=== PATIENT | male | born 1980 | race Caucasian/White ===

== ENCOUNTER 2023-03-28 00:11 | Day surgery (SDC) | payer OTHER, SELFPAY ==
[2023-03-15 11:10] VITALS: BMI 33.8
--- NOTE | 2023-03-26 09:27 | SUR.PREOP ---
Patient called regarding upcoming procedure. Message left on patient's voicemail regarding preop instructions, appointment times, and procedure prep.
--- NOTE | 2023-03-27 15:14 | PM.HPGS ---
History of Present Illness History of Present Illness Consent: Risks, benefits, and alternatives have been discussed and questions answered. Patient agrees to proceed with procedure. Chief complaint: neoplasm screening Narrative: Musa Butt is a 42 year old male referred for colon cancer screening. Review of Systems Review of Systems: All systems reviewed & are unremarkable except as noted in HPI and below PMFSH Social History Social History Smoking status: Current every day smoker Tobacco type: e-cigarettes/vaping Additional smoking assessment comments: Marijuana Alcohol intake: former Alcohol use details: Alcohol Abuse 25 years, Sober 2021 Substance use: current Substance use type: marijuana Other substance usage details: Daily medical marijuana use Spiritual care concerns: No Meds Home Medications and Allergies Home Medications Medication Instructions Recorded Confirmed Type atomoxetine 25 mg capsule 80 mg PO DAILY 03/15/23 03/28/23 History atorvastatin 10 mg tablet 10 mg PO DAILY 03/15/23 03/28/23 History duloxetine 30 mg capsule,delayed 30 mg PO TID 03/15/23 03/28/23 History release hydroxyzine pamoate 25 mg capsule 25 mg PO QID 03/15/23 03/28/23 History lisinopril 20 1 tablet PO DAILY 03/15/23 03/28/23 History mg-hydrochlorothiazide 25 mg tablet pantoprazole 40 mg tablet,delayed 40 mg PO QAM 03/15/23 03/28/23 History release quetiapine 100 mg tablet 200 mg PO HS 03/15/23 03/28/23 History Allergies Allergy/AdvReac Type Severity Reaction Status Date / Time Sulfa (Sulfonamide Allergy Unknown Hives Verified 03/28/23 11:51 Antibiotics) Exam Resp: Auscultation: clear to auscultation bilaterally Cardio: Rate: regular rate Rhythm: regular rhythm GI: GI Palp: Yes Soft to palpation and No Tenderness to palpation present (GI) Assessment and Plan Assessment and plan (1) Colon cancer screening: Code(s): Z12.11 - Encounter for screening for malignant neoplasm of colon Status: Acute Assessment and Plan: Colonoscopy with possible biopsy or polypectomy or cautery or injection of substances.
[2023-03-28 11:53] VITALS: BP 138/93; PULSE 95; RESP 16; TEMP 36.2; O2SAT 100
[2023-03-28] MEDS: LACTATED RINGERS 1,000 ML 150 ML IV CONT (12:13)
--- NOTE | 2023-03-28 12:24 | WPDANESEPPF ---
Anes - Initial Pre Proc Eval Procedure: Operation Date: 03/28/23 13:00 Proposed Procedures p Screening Colonoscopy - Chris Ewing MD Date/Time: 03/28/23 12:24 Surgeon: Chris Ewing MD Pre Op Diagnosis: neoplasm screening Patient Data Age: 42 Gender: M Height: 1.8 m Weight: 113.2 kg Last Vital Signs Temp 97.1 F L 03/28/23 11:53 Pulse 95 03/28/23 11:53 Resp 16 03/28/23 11:53 BP 138/93 H 03/28/23 11:53 Pulse Ox 100 03/28/23 11:53 O2 Del Method Room Air 03/28/23 11:53 Allergies Allergy/AdvReac Type Severity Reaction Status Date / Time Sulfa (Sulfonamide Allergy Unknown Hives Verified 03/28/23 11:51 Antibiotics) Home Medications Medication Instructions Recorded Confirmed Type atomoxetine 25 mg capsule 80 mg PO DAILY 03/15/23 03/28/23 History atorvastatin 10 mg tablet 10 mg PO DAILY 03/15/23 03/28/23 History duloxetine 30 mg capsule,delayed 30 mg PO TID 03/15/23 03/28/23 History release hydroxyzine pamoate 25 mg capsule 25 mg PO QID 03/15/23 03/28/23 History lisinopril 20 1 tablet PO DAILY 03/15/23 03/28/23 History mg-hydrochlorothiazide 25 mg tablet pantoprazole 40 mg tablet,delayed 40 mg PO QAM 03/15/23 03/28/23 History release quetiapine 100 mg tablet 200 mg PO HS 03/15/23 03/28/23 History Patient hx anesthesia problems: none Family hx anesthesia problems: none Results Review: All pre-operative results and documents have been reviewed as part of the pre-operative evaluation. [facility] Social History Social History Smoking status: Current every day smoker Tobacco type: e-cigarettes/vaping Additional smoking assessment comments: Marijuana Alcohol intake: former Alcohol use details: Alcohol Abuse 25 years, Sober 2021 Substance use: current Substance use type: marijuana Other substance usage details: Daily medical marijuana use Spiritual care concerns: No Anes - Eval Final PreProcedure Day of Procedure 03/28/23 12:24 Patient weight: obese Heart: regular rate and rhythm Lungs: clear to auscultation Airway: Mallampati scale class II Neurological: alert and oriented Last oral intake: >/= 8 hours ASA classification: III Emergent: no Anesthetic plan: proceed Anesthesia type and monitoring: general GIVS and standard monitoring Results Review: All pre-operative results and documents have been reviewed as part of the pre-operative evaluation. Informed Consent: The patient's anesthetic plan and its attendant risks and benefits were discussed with the patient/family/POA. Questions were solicited and answers provided to the satisfaction of the patient/family/POA.
[2023-03-28 12:52] VITALS: BP 120/82; PULSE 83; RESP 18; O2SAT 95
[2023-03-28 13:02] VITALS: BP 117/84; PULSE 74; RESP 18; O2SAT 100
[2023-03-28 13:12] VITALS: BP 120/90; PULSE 77; RESP 18; O2SAT 100
== END 2023-03-28 13:27 | disposition home or self-care (01) ==
PROVIDERS: PCP Internal Medicine; Visit Provider Internal Medicine Gastroenterology
PROC: 0DJD8ZZ Inspection of Lower Intestinal Tract, Via Natural or Artificial Opening Endoscopic (ICD-10-PCS; CPT 45378; principal; 2023-03-28 13:00)
DX: Z12.11 Encounter for screening for malignant neoplasm of colon (principal); K57.30 Diverticulosis of large intestine without perforation or abscess without bleeding; K64.8 Other hemorrhoids; F17.290 Nicotine dependence, other tobacco product, uncomplicated; F12.90 Cannabis use, unspecified, uncomplicated; E66.9 Obesity, unspecified; Z68.34 Body mass index [BMI] 34.0-34.9, adult
CPT/HCPCS: 45378; J2704; J7120

== ENCOUNTER 2023-05-16 10:58 | Outpatient (CLI) | payer OTHER, SELFPAY ==
--- NOTE | ~2023-05-16 | MR_ITS ---
MRI of the right knee Clinical history: Medial meniscus tear Technique: Coronal proton density and proton density-weighted images, sagittal proton-density and T2 fat-sat images, and axial proton-density fat-saturated images were acquired. Findings: Anterior and posterior cruciate ligaments are intact. Medial collateral ligament and the la teral collateral ligament complex are intact. Popliteus tendon is intact. There is complex flap tearing of the posterior horn of the medial meniscus. No lateral meniscal tear identified. There is focal chondromalacia towards the medial joint line. Articular cartilage in the lateral and p atellofemoral compartments is well preserved. Extensor mechanism is intact. There is no significant joint effusion or Lainez's cyst. There is mild e dematous change of the popliteus muscle belly. Impression: Complex flap tear of the posterior horn of the medial meniscus. Mild edematous change of the popliteus muscle belly. Correlate for low-grade muscle strain. Reviewed, dictated and finalized at [facility]. PROGRAMMER Impression: Complex flap tear of the posterior horn of the medial meniscus. Mild edematous change of the popliteus muscle belly. Correlate for low-grade mu scle strain.
== END 2023-05-16 10:59 ==
LOC: MICIMG 10:59
PROVIDERS: PCP Internal Medicine; Visit Provider Orthopaedic Surgery
DX: S83.231A Complex tear of medial meniscus, current injury, right knee, initial encounter (principal); M62.89 Other specified disorders of muscle; X58.XXXA Exposure to other specified factors, initial encounter
CPT/HCPCS: 73721

== ENCOUNTER 2023-07-06 09:29 | Outpatient (CLI) | payer OTHER, SELFPAY ==
--- NOTE | 2023-07-06 09:51 | ECG_ITS ---
Measurements Intervals [place] Rate: 92 P: 41 MT: 172 QRS: -16 QRSD: 94 T: 56 QT: 328 QTc: 407 Interpretive Statements SINUS RHYTHM BASELINE ARTIFACT- I, III, AVR, V2 NORMAL ECG NO PREVIOUS ECG AVAILABLE FOR COMPARISON Electronically Signed On 07-06-2023 10:26:41 CDT by Soham Lemus D.O.
[2023-07-06 10:32] LABS: Anion Gap 3 mmol/L (8-16); Blood Urea Nitrogen 17 mg/dL (9-20); Calcium 9.4 mg/dL (8.4-10.2); Carbon Dioxide 32 mmol/L (22-30); Chloride 105 mmol/L (98-107); Estimated Glomerular Filt Rate > 60; Glucose 101 mg/dL (65-110); Potassium 4.4 mmol/L (3.4-5.0); Sodium 140 mmol/L (137-145)
== END 2023-07-06 09:30 | disposition home or self-care (01) ==
LOC: ANHSURGERY 09:34
PROVIDERS: Anesthesiology; PCP Internal Medicine; Visit Provider Orthopaedic Surgery
DX: Z01.818 Encounter for other preprocedural examination (principal); I10 Essential (primary) hypertension; Z79.899 Other long term (current) drug therapy
CPT/HCPCS: 36415; 80048; 93005

== ENCOUNTER 2023-07-16 00:11 | Day surgery (SDC) | payer OTHER, SELFPAY ==
[2023-07-05 14:20] VITALS: BMI 34.5
--- NOTE | 2023-07-05 14:26 | PC.NURSE ---
Report to the Outpatient Waiting Room, entrance under the green pavilion located off [facility], at time _0600_ on date _[id number]_. Planned Procedure Time: _0730_. Time changes happen often and if your time is changed the preop area will call you the afternoon before. - You and your visitor will be asked to self-screen and do not enter if you have any COVID symptoms. - A mask is optional within the hospital at this time. Patients may have clear liquids (water, carbonated beverages, clear teas, apple juice) until 3 hours prior to surgery with a maximum of 20 ounces. - No food from midnight until time of surgery Take the following medications with a SIP of water the morning of surgery: ____Atomoxetine, Duloxetine and Hydroxyzine DO NOT STOP ANY OF YOUR OTHER PRESCRIPTION MEDICATIONS PRIOR TO SURGERY ?EXCEPT THE FOLLOWING Medications to discontinue per physician None Date to take last dose Please no make-up, nail cook islander, hairspray, perfume, deodorant, or body powder the day of surgery. No jewelry (including any body piercings) or valuables the day of surgery, leave them at home. Please take a shower or bath the night before, or the morning of, surgery with an antibacterial soap. Wear comfortable, loose fitting clothing. - Jewelry must be removed prior to entering the operating room. Rings and piercings that are not removed may be cut off. - The hospital will not accept responsibility for valuables. - Please leave all valuables, including medications, at home the day of surgery. If you are going home after surgery, a licensed dinkey driver must drive you home. - NO public transportation without another adult if you receive anesthesia. - We recommend that an adult stay with you for 24 hours following discharge. - We also recommend that you do not drive, make important decision, drink alcoholic beverages, or take any drugs that were not prescribed by your health care provider for at least 24 hours after your discharge time. Follow any additional instructions given to you from your surgeon. If you or anyone in your household have experienced Covid symptoms in the past week, please notify your surgeon or the nurse liaison at the phone number below for possible testing. Telephone instructions given to __Ross___and asked if any additional questions and then verbalized understanding. Patient advised to call surgeon office or pre surgery nurse liaison [phone] if any additional questions.
--- NOTE | 2023-07-12 08:14 | PM.IMHP ---
H&P: HPI History of Present Illness Date/Time: 07/12/23 08:14 Chief Complaint: Patient has locking and catching of his right knee medial meniscus. He has failed conservative treatment would like to consider arthroscopic intervention. Review of Systems Musculoskeletal: Musculoskeletal: Reports arthralgias, Reports joint swelling and Reports stiffness [facility] Past Medical History Medical History Hypertension Surgical History Surgical History History of arthroscopy of left knee Family History Family History Mother Hypertension Father Hypertension Social History Social History Smoking status: Never smoker Alcohol intake: former Alcohol use details: Alcohol Abuse 25 years, Sober 2021 Substance use: current Substance use type: marijuana Other substance usage details: Daily Do You Feel Safe in your Home?: Yes Lack of Transportation: No Lack of Food: Never True Current Housing: I Have Housing Concerned About Future Housing: No Difficulty Paying Gas/Electric Bills: No Difficulty Paying for Meds: No Currently Unemployed: No Education: Bachelor's Degree Difficulty w/ Childcare or Family Care: No Living arrangements: with family Occupation/Education: occupation Additional occupation/education comments: [employer] care concerns: No Meds Home Medications and Allergies Home Medications Medication Instructions Recorded Confirmed Type atorvastatin 10 mg tablet 10 mg PO DAILY 03/15/23 07/05/23 History duloxetine 30 mg capsule,delayed 30 mg PO TID 03/15/23 07/05/23 History release hydroxyzine pamoate 25 mg capsule 25 mg PO QID 03/15/23 07/05/23 History lisinopril 20 1 tablet PO DAILY 03/15/23 07/05/23 History mg-hydrochlorothiazide 25 mg tablet pantoprazole 40 mg tablet,delayed 40 mg PO QAM 03/15/23 07/05/23 History release quetiapine 100 mg tablet 200 mg PO HS 03/15/23 07/05/23 History atomoxetine 80 mg capsule 80 mg PO DAILY 07/05/23 07/05/23 History Allergies Allergy/AdvReac Type Severity Reaction Status Date / Time Sulfa (Sulfonamide Allergy Unknown Hives Verified 07/05/23 14:18 Antibiotics) Exam Narrative: On exam he is tender to palpation medially has catching locking and pain with any manipulation. He has a positive Carlos's and pain along the joint line. Neurologically appears to be grossly intact. Eyes: General: appearance normal, both eyes and all related structures Neck: Neck: supple Resp: Effort & Inspection: normal respiratory effort Cardio: Rate: regular rate Rhythm: regular rhythm Radiology Reports: Comments: Patient: Musa Butt : 1980 MR#: [id number] Age: 42 Loc: [facility]? ? ADM Date: 05/16/23Attending Dr: Lai Graham M.D. Ordering Physician: Lai Graham MD Date of Service: 05/16/23 Procedure(s): MR knee RT wo con Accession Number(s): [id number] cc: Jim, Jesus Chandler MD; Lai Graham MD~ MRI of the right knee Clinical history: Medial meniscus tear Technique: Coronal proton density and proton density-weighted images, sagittal proton-density and T2 fat-sat images, and axial proton-density fat-saturated images were acquired. Findings: Anterior and posterior cruciate ligaments are intact. Medial collateral ligament and the lateral collateral ligament complex are intact. Popliteus tendon is intact. There is complex flap tearing of the posterior horn of the medial meniscus. No lateral meniscal tear identified. There is focal chondromalacia towards the medial joint line. Articular cartilage in the lateral and patellofemoral compartments is well preserved. Extensor mechanism is intact. There is no significant shiv
[2023-07-16] VITALS (8 sets, daily range): BP systolic 105–130; BP diastolic 61–92; PULSE 69–108; RESP 16–22; TEMP 36.4; O2SAT 95–100
--- NOTE | 2023-07-16 06:53 | WPDHPUPDATE1 ---
History and Physical Update Update Date/Time: 07/16/23 06:53 History and Physical has been reviewed, including an updated exam of the patient. There are NO changes in the patient's condition. Risks, benefits, and alternatives have been discussed and questions answered. Patient agrees to proceed with procedure.
[2023-07-16] MEDS: ACETAMINOPHEN 500 MG TABLET 1000 MG PO (07:45)
[2023-07-16] MEDS: KETOROLAC 15 MG/ML VIAL (*BKC) IV PUSH (08:09)
--- NOTE | 2023-07-16 08:19 | WPDANESEPPF ---
Anes - Initial Pre Proc Eval Procedure: Operation Date: 07/16/23 09:30 Proposed Procedures p Right Knee Arthroscopy, Partial Meniscectomy - Lai Graham MD Date/Time: 07/16/23 08:19 Surgeon: Lai Graham MD Pre Op Diagnosis: right medial meniscal tear Patient Data Age: 42 Gender: M Height: 1.8 m Weight: 114.6 kg Last Vital Signs Temp 36.4 C 07/16/23 07:52 Pulse 108 H 07/16/23 07:52 Resp 16 07/16/23 07:52 BP 113/87 07/16/23 07:52 Pulse Ox 97 07/16/23 07:52 O2 Del Method Room Air 07/16/23 07:52 Allergies Allergy/AdvReac Type Severity Reaction Status Date / Time Sulfa (Sulfonamide Allergy Unknown Hives Verified 07/16/23 07:41 Antibiotics) Home Medications Medication Instructions Recorded Confirmed Type atorvastatin 10 mg tablet 10 mg PO DAILY 03/15/23 07/05/23 History duloxetine 30 mg capsule,delayed 30 mg PO TID 03/15/23 07/05/23 History release hydroxyzine pamoate 25 mg capsule 25 mg PO QID 03/15/23 07/05/23 History lisinopril 20 1 tablet PO DAILY 03/15/23 07/05/23 History mg-hydrochlorothiazide 25 mg tablet pantoprazole 40 mg tablet,delayed 40 mg PO QAM 03/15/23 07/05/23 History release quetiapine 100 mg tablet 200 mg PO HS 03/15/23 07/05/23 History atomoxetine 80 mg capsule 80 mg PO DAILY 07/05/23 07/05/23 History Patient hx anesthesia problems: none Family hx anesthesia problems: none Results Review: All pre-operative results and documents have been reviewed as part of the pre-operative evaluation. REPLACED BY [facility] Past Medical History Medical History Hypertension Surgical History Surgical History History of arthroscopy of left knee Family History Family History Mother Hypertension Father Hypertension Social History Social History (Reviewed 05/23/23 @ 09:05 by Wandy Martin [facility] Smoking status: Never smoker Alcohol intake: former Alcohol use details: Alcohol Abuse 25 years, Sober 2021 Substance use: current Substance use type: marijuana Other substance usage details: Daily Do You Feel Safe in your Home?: Yes Lack of Transportation: No Lack of Food: Never True Current Housing: I Have Housing Concerned About Future Housing: No Difficulty Paying Gas/Electric Bills: No Difficulty Paying for Meds: No Currently Unemployed: No Education: Bachelor's Degree Difficulty w/ Childcare or Family Care: No Living arrangements: with family Occupation/Education: occupation Additional occupation/education comments: [employer] concerns: No Anes - Eval Final PreProcedure Day of Procedure 07/16/23 08:19 Patient weight: obese Heart: regular rate and rhythm Lungs: clear to auscultation Airway: Mallampati scale class II Neurological: alert and oriented Last oral intake: >/= 8 hours ASA classification: III Emergent: no Anesthetic plan: proceed Anesthesia type and monitoring: general LMA and standard monitoring Results Review: All pre-operative results and documents have been reviewed as part of the pre-operative evaluation. Informed Consent: The patient's anesthetic plan and its attendant risks and benefits were discussed with the patient/family/POA. Questions were solicited and answers provided to the satisfaction of the patient/family/POA.
[2023-07-16] MEDS: LACTATED RINGERS 1,000 ML 30 ML IV CONT (08:27)
[2023-07-16] MEDS: ceFAZolin 2 GM/D5W 50 ML 2 GM/50 ML BAG IVPB (09:56)
[2023-07-16] MEDS: LIDO 1%/EPINEPHRINE 1:100,000 50 ML VIAL 10 ML INFILTRATE (10:24)
--- NOTE | 2023-07-16 10:30 | W.PM.PROC2 ---
Procedure Note - Detailed Date of Procedure 07/16/23 Pre-op Diagnosis Right medial meniscal tear Post-op Diagnosis Same Procedure Performed RIGHT knee arthroscopy with partial meniscetomy Surgeon Lai Graham MD Anesthesia General Description of Procedure Patient brought to operating room # 7. An anesthetic was administered. The knee was steriley prepped and draped in the usual manner. Standard portals were used. Superior medial portal was used for the outflow cannula, inferior lateral portal was used for the scope, inferior medial portal was used for the instruments. Arthroscopy was performed, the patellar femoral joint degenerative changes. The medial compartment showed a complex tear. The lateral compartment showed fraying. The ACL was intact. Using baskets and josiah the meniscal tear was trimmed back to a stable base so the nothing further could be pulled into the joint. Any loose or delaminated fragments were gently trimmed to a stable base. At this point the instruments were withdrawn, sutures placed and the patient left the operating room in satisfactory condition. Estimated Blood Loss 20 Drains No Packing No Pathology None sent Complications No immediate complications Condition Stable Disposition PACU [facility] Billing Surgery - Charge Forward: Surgery Billing (Medial Meniscal Tear [id number])
== END 2023-07-16 12:45 | disposition home or self-care (01) ==
PROVIDERS: PCP Internal Medicine; Visit Provider Orthopaedic Surgery
PROC: (CPT 29870; principal; 2023-07-16 09:30)
DX: S83.241A Other tear of medial meniscus, current injury, right knee, initial encounter (principal); I10 Essential (primary) hypertension; F12.90 Cannabis use, unspecified, uncomplicated; E66.9 Obesity, unspecified; Z68.35 Body mass index [BMI] 35.0-35.9, adult; Z98.890 Other specified postprocedural states; X58.XXXA Exposure to other specified factors, initial encounter
CPT/HCPCS: 29881; A9270; J0690; J1100; J1885; J2250; J2405; J2704; J3010; J7120

== ENCOUNTER 2024-10-10 08:44 | Emergency (ER) | payer OTHER, SELFPAY ==
[2024-10-10 08:46] VITALS: BP 123/89; PULSE 137; RESP 15; TEMP 36.4; O2SAT 98
--- NOTE | 2024-10-10 08:53 | ECG_ITS ---
Test Date: 2024-10-10 08:50:58 Measurements Intervals [place] Rate: 120 P: 60 NH: 158 QRS: 5 QRSD: 94 T: 56 QT: 291 QTc: 413 Interpretive Statements SINUS TACHYCARDIA ABNORMAL ECG No previous ECG available for comparison Electronically Signed On 10-10-2024 08:55:15 CDT by Soham Lemus D.O.
[2024-10-10 09:14] LABS: Basophils Absolute Auto 0.1 K/mm3 (0.0-0.1); Eosinophils Percent Auto 0.2 % (0-4.4); Hematocrit 49.9 % (42.0-52.0); Hemoglobin 17.8 g/dL (14.0-18.0); Immature Granulocyte Absolute 0.02 K/mm3 (0.00-0.031); Immature Granulocyte Percent A 0.2 % (0-0.5); Lymphocytes Absolute Auto 2.88 K/mm3 (0.9-3.2); Lymphocytes Percent Auto 30.1 % (18.3-44.2); Mean Corpuscular HGB Conc 35.7 g/dl (32-36); Mean Platelet Volume 9.5 fl (7.4-10.4); Monocytes Absolute Auto 0.5 K/mm3 (0.1-0.6); Monocytes Percent Auto 5.3 % (2.6-8.5); Neutrophils Absolute Auto 6.1 K/mm3 (1.3-6.7); Neutrophils Percent Auto 63.2 % (45.5-73.1); Platelet Count Result 349 k/mm3 (150-375); Red Blood Count 5.94 M/mm3 (4.6-6.20); Red Cell Distribution Width 13.2 % (11.5-14.5); White Blood Count 9.6 K/mm3 (4.5-10.0)
--- NOTE | 2024-10-10 09:16 | ED.ALCOHOL ---
HPI - Alcohol General Chief Complaint: Alcohol Stated Complaint: alcoholism last drink last night Time Seen by Provider: 10/10/24 09:01 History of Present Illness HPI narrative: Patient is a 44-year-old male who presents to the ER with concerns of alcohol withdrawal. He reports he went through alcohol rehab approximately 3 years ago. Patient reports he has had intermittent setbacks throughout the past 3 years but has not been drinking regularly. He reports ?I just feel so bad that I am back here and I am so scared to go through this again. Patient is unsure when the last time was that he drink but he reports it was within the last 24 hours. He reports he drinks ?two airplane bottles. Patient reports his abdomen hurts and he has shaking in his hands. He endorses medical history of high blood pressure. Patient denies any chest pain, shortness of breath, back pain, headache or neck pain. Related Data Home Medications ?Medication ?Instructions ?Recorded ?Confirmed ?Last Taken ?Type atorvastatin 10 mg tablet 10 mg PO DAILY 03/15/23 07/31/23 03/27/23 History duloxetine 30 mg capsule,delayed 30 mg PO TID 03/15/23 07/31/23 03/27/23 History release hydroxyzine pamoate 25 mg capsule 25 mg PO QID 03/15/23 07/31/23 03/27/23 History lisinopril 20 1 tablet PO DAILY 03/15/23 07/31/23 03/27/23 History mg-hydrochlorothiazide 25 mg tablet pantoprazole 40 mg tablet,delayed 40 mg PO QAM 03/15/23 07/31/23 03/27/23 History release quetiapine 100 mg tablet 200 mg PO HS 03/15/23 07/31/23 03/27/23 History atomoxetine 80 mg capsule 80 mg PO DAILY 07/05/23 07/31/23 Unknown History semaglutide (weight loss) 0.25 0.25 mg subcut WEEKLY 07/31/23 07/31/23 Unknown History mg/0.5 mL subcutaneous pen injector (Wegovy) Allergies Allergy/AdvReac Type Severity Reaction Status Date / Time Sulfa (Sulfonamide Allergy Unknown Hives Verified 10/10/24 08:52 Antibiotics) Review of Systems Review of Systems: All systems reviewed & are unremarkable except as noted in HPI and below PMFSH Past Medical History Medical History Anxiety Depression Hyperlipemia Hypertension Surgical History Surgical History History of arthroscopy of left knee Family History Family History Mother Hypertension Father Hypertension Social History Social History Smoking status: Never smoker Alcohol intake: former Alcohol use details: Alcohol Abuse 25 years, Sober 2021 Substance use: current Substance use type: marijuana Other substance usage details: Daily Do You Feel Safe in your Home?: Yes Lack of Transportation: No Lack of Food: Never True Current Housing: I Have Housing Concerned About Future Housing: No Difficulty Paying Gas/Electric Bills: No Difficulty Paying for Meds: No Currently Unemployed: No Education: Bachelor's Degree Difficulty w/ Childcare or Family Care: No Living arrangements: with family Occupation/Education: occupation Additional occupation/education comments: [employer] care concerns: No Exam Narrative: GENERAL: Well appearing, well-nourished, non-toxic, in no acute distress. HEAD: Normocephalic, atraumatic. NECK: Supple. No adenopathy, no masses. RESPIRATORY: Airway patent, respirations nonlabored. Clear to auscultation bilaterally, no rales, rhonchi, wheezing. CARDIOVASCULAR: Regular rate and rhythm without murmurs, rubs, or gallops. Peripheral pulses 2+ and equal bilaterally. ABDOMINAL: Soft, nontender, nondistended, no hepatosplenomegaly. Normoactive BS. MUSCULOSKELETAL: Moves all extremities. Strength/ROM intact without gross deformities. SKIN: Warm, dry, normal color. No rashes. NEURO: A&O X3. Speech clear. Cranial nerves II-XII intact. Mild tremor in bilateral hands PSYCHIATRIC: Tearful Course Vital Signs Vital signs: Vital Signs Temperature 36.4 C 10/10/24 08:46 Pulse Rate 137 H 10/10/24 08:46 Respiratory Rate 15 10/10/24 08:46 Blood Pressure 123/89 10/10/24 08:46 Pulse Oximetry 98 10/10/24 08:46 Oxygen Delivery Room Air 10/10/24 08:46 Temperature 36.4 C 10/10/24 08:46 Pulse Rate 137 H 10/10/24 08:46 Respiratory Rate 15 10/10/24 08:46 Blood Pressure 123/89 10/10/24 08:46 Pulse Oximetry 98 10/10/24 08:46 Oxygen Delivery Room Air 10/10/24 08:46 MDM - Alcohol MDM Narrative Medical decision making narrative: Patient is a 44-year-old male who presents to the ER with concerns of alcohol withdrawal. He reports he went through alcohol rehab approximately 3 years ago. Patient reports he has had intermittent setbacks throughout the past 3 years but has not been drinking regularly. He reports ?I just feel so bad that I am back here and I am so scared to go through this again. Patient is unsure when the last time was that he drink but he reports it was within the last 24 hours. He reports he drinks ?two airplane bottles. Patient reports his abdomen hurts and he has shaking in his hands. He endorses medical history of high blood pressure. Patient denies any chest pain, shortness of breath, back pain, headache or neck pain. Labs Ordered: CBC, CMP, PTT, INR, we B12, folic acid, phosphorus, COVID/flu/RSV, flu asleep level, ethanol level, magnesium, TSH, UDS, UA Imaging Ordered: None necessary Medications Ordered: Vitamin B12, folic acid, thiamine IV, potassium chloride p.o., 1 L normal saline IV bolus Results: Patient's CBC was unremarkable for any acute abnormalities. His CMP indicated a potassium of 3.3, his anion gap is 16, glucose of 136, AST of 63. Patient's vitamin B12 is 639, folate of 4.9, TSH of 3.420. His ethanol level was 318. Patient's respiratory panel was negative for any influenza, RSV, or COVID. Diagnosis: Alcohol intoxication Consults: [facility] (Mary Ellen Gottlieb) Patient Education/Shared MDM: Results of lab work shared with patient and his family. [facility] Display Coordinator Appellate Conferee, Mary Ellen Gottlieb, reports pt has been accepted at her facility for inpatient alcohol treatment. She requests pt receive a dose of Hydroxyzine PO prior to him being discharged. Pt is not experiencing withdrawal symptoms at this time, but is very anxious. Patient strongly advised to maintain hydration status upon discharge and follow-up with plan established by Mary Ellen Gottlieb. He will not be discharged home with any new prescriptions. Strict return precautions provided. Patient verbalized understanding and is in agreement with plan. Vital signs stable at time of discharge. All questions answered. Differential Diagnosis Differential diagnosis: Likely alcohol withdrawal delirium, hypomagnesemia, alcohol intoxication and alcohol withdrawal syndrome Lab Data Attestation: I reviewed the patient's lab results. 10/10/24 08:59 10/10/24 08:59 Labs: Lab Results 10/10/24 Range/Units 08:59 WBC 9.6 (4.5-10.0) K/mm3 RBC 5.94 (4.6-6.20) M/mm3 Hgb 17.8 (14.0-18.0) g/dL Hct 49.9 (42.0-52.0) % MCV 84.0 (80-100) fl MCH 30.0 (26-34) pg MCHC 35.7 (32-36) g/dl RDW 13.2 (11.5-14.5) % Plt Count 349 (150-375) k/mm3 MPV 9.5 (7.4-10.4) fl Immature Gran % (Auto) 0.2 (0-0.5) % Neut % (Auto) 63.2 (45.5-73.1) % Lymph % (Auto) 30.1 (18.3-44.2) % Burke % (Auto) 5.3 (2.6-8.5) % Eos % (Auto) 0.2 (0-4.4) % Baso % (Auto) 1.0 (0.2-1.2) % Lymph # (Auto) 2.88 (0.9-3.2) K/mm3 Burke # (Auto) 0.5 (0.1-0.6) K/mm3 Eos # (Auto) 0.0 (0-0.3) K/mm3 Baso # (Auto) 0.1 (0.0-0.1) K/mm3 Abs Immat Gran (auto) 0.02 (0.00-0.031) K/mm3 Absolute Neuts (auto) 6.1 (1.3-6.7) K/mm3 Absolute Nucleated RBC 0.000 (0.0-0.012) K/mm3 Nucleated RBC % 0.0 (0.0-0.2) % PT 13.3 (11.1-14.7) Seconds INR 1.0 APTT 26.2 (22.3-36.8) Seconds Sodium 139 (137-145) mmol/L Potassium 3.3 L (3.4-5.0) mmol/L Chloride 100 (98-107) mmol/L Carbon Dioxide 23 (22-30) mmol/L Anion Gap 16 H (4-12) mmol/L BUN 15 (9-20) mg/dL Creatinine 1.06 (0.7-1.3) mg/dL Estim Creat Clear Calc 98 ml/min Estimated GFR > 60 (59 - ) Glucose 136 H (65-110) mg/dL Calcium 8.6 (8.4-10.2) mg/dL Phosphorus 3.0 (2.5-4.5) mg/dL Magnesium 2.2 (1.6-2.3) mg/dL Total Bilirubin 1.0 (0.2-1.3) mg/dL AST 63 H (17-59) U/L ALT 46 (6-50) U/L Alkaline Phosphatase 72 (38-126) U/L Total Protein 8.2 (6.3-8.2) g/dL Albumin 4.5 (3.5-5.1) g/dL Vitamin B12 639.0 (239-931) pg/mL Folate 4.9 (2.76->20) ng/mL TSH (Reflex) 3.420 (0.465-4.68) uIU/mL Salicylates < 1.0 L (2-20) mg/dL Acetaminophen < 10 L (10-30) ug/mL Ethyl Alcohol 318 H* (<10) mg/dL Influenza A (RT-PCR) Negative (Negative) Influenza B (RT-PCR) Negative (Negative) RSV (RT-PCR) Negative (Negative) SARS-CoV-2 RNA (RT-PCR) Negative (Negative) Discharge Plan Discharge Clinical Impression: Alcohol intoxication, Acute hypokalemia, Dehydration, mild Patient Disposition: Inpatient Rehab Facility Condition: Guarded Prognosis Instructions: Abuse of Alcohol (ED) Additional Instructions: Please return to the ER with any worsening symptoms. Follow-up with your plan to go to rehabilitation as discussed with the Jeaneth Theodore coordinator. Please remember to drink plenty of water. Patient Language: [place] Citizen Prescriptions: No Action Wegovy 0.25 mg/0.5 mL pen injector 0.25 mg subcut WEEKLY Rx Instructions: administer weeks 1 through 4 of therapy atorvastatin 10 mg Tablet 10 mg PO DAILY quetiapine 100 mg tablet 200 mg PO HS pantoprazole 40 mg Tablet,Delayed Release (Dr/Ec) 40 mg PO QAM lisinopril-hydrochlorothiazide 20-25 mg tablet 1 tablet PO DAILY hydroxyzine pamoate 25 mg Capsule 25 mg PO QID Rx Instructions: Taking only tid duloxetine 30 mg capsule,delayed release(DR/EC) 30 mg PO TID atomoxetine 80 mg capsule 80 mg PO DAILY Follow-up/Referrals: Jim,MD Jesus [Primary Care Provider] - Time of Disposition: 12:50
[2024-10-10 09:32] LABS: Alanine Aminotransferase 46 U/L (6-50); Albumin Level 4.5 g/dL (3.5-5.1); Alkaline Phosphatase 72 U/L (38-126); Anion Gap 16 mmol/L (4-12); Aspartate Amino Transferase 63 U/L (17-59); Blood Urea Nitrogen 15 mg/dL (9-20); Calcium 8.6 mg/dL (8.4-10.2); Carbon Dioxide 23 mmol/L (22-30); Chloride 100 mmol/L (98-107); Estimated CRCL calculation 98 ml/min; Estimated Glomerular Filt Rate > 60; Glucose 136 mg/dL (65-110); Magnesium 2.2 mg/dL (1.6-2.3); Potassium 3.3 mmol/L (3.4-5.0); Sodium 139 mmol/L (137-145); Total Protein 8.2 g/dL (6.3-8.2)
[2024-10-10 09:33] LABS: Prothrombin Time 13.3 Seconds (11.1-14.7)
[2024-10-10 09:34] LABS: Partial Thromboplastin Time 26.2 Seconds (22.3-36.8)
[2024-10-10] MEDS: FOLIC ACID 1 MG TABLET PO (09:40)
[2024-10-10] MEDS: CYANOCOBALAMIN 1,000 MCG TABLET 1000 MCG PO (09:40)
[2024-10-10] MEDS: SODIUM CHLORIDE 0.9% IV 1,000 ML 999 ML IV CONT (09:41)
[2024-10-10] MEDS: THIAMINE HCL 200 MG/2 ML VIAL 100 MG IV PUSH (09:47)
[2024-10-10] MEDS: POTASSIUM CHLORIDE 20 MEQ PACKET (FOR LIQUID) 40 MEQ PO (09:48)
[2024-10-10 10:14] LABS: Acetaminophen < 10 ug/mL (10-30); Salicylate < 1.0 mg/dL (2-20)
[2024-10-10 10:25] LABS: Influenza A QL RT-PCR Negative (Negative); Influenza B QL RT-PCR Negative (Negative); RSV RNA, RT-PCR Negative (Negative); SARS-CoV-2 RNA PCR Negative (Negative)
[2024-10-10 10:41] LABS: Ethanol 318 mg/dL (<10)
[2024-10-10 11:37] LABS: Folic Acid 4.9 ng/mL (2.76->20)
[2024-10-10 12:47] VITALS: BP 142/92; PULSE 92; RESP 16; O2SAT 99
[2024-10-10 12:55] VITALS: BP 105/68; PULSE 108; RESP 20; O2SAT 97
[2024-10-10] MEDS: hydrOXYzine HCL 25 MG TABLET PO (12:56)
[2024-10-10 13:03] VITALS: BP 105/68; PULSE 108; RESP 20; O2SAT 97
== END 2024-10-10 13:05 ==
PROVIDERS: Emergency Medicine; Emergency Provider Registered Nurse; PCP Internal Medicine
DX: F10.129 Alcohol abuse with intoxication, unspecified (principal); Y90.8 Blood alcohol level of 240 mg/100 ml or more; E87.6 Hypokalemia; E86.0 Dehydration; F41.8 Other specified anxiety disorders; E78.5 Hyperlipidemia, unspecified; I10 Essential (primary) hypertension; Z11.59 Encounter for screening for other viral diseases
CPT/HCPCS: 36415; 80053; 80143; 80179; 82077; 82607; 82746; 83735; 84100; 84443; 85025; 85610; 85730; 87637; 93005; 96361; 96374; 99284; A9270; J3411; J7030

== ENCOUNTER 2025-01-14 00:39 | Day surgery (SDC) | payer OTHER, SELFPAY ==
[2025-01-05 11:07] VITALS: BMI 30.1
--- OUTSIDE RECORDS SUMMARY | 2025-01-14 00:42 | XMS_ITS | Data Portability ---
Author Organization [place] - [facility] [employer], Main Office Address [address] [place] [address] Care Team Providers Care Risk Consulting Treasury Director Name Role Phone SOCO MURPHY Primary Care Provider SOCO MURPHY Referring Provider Assessment Encounter Date Assessment Date Assessment LastModified by Organization Details LastModified Time 07/30/2024 07/30/2024 Addendum: 08/01/2024: Case sent 07/31/2024: Gluc 101 Not available 08/01/2024 14:12:09 11/19/2024 11/19/2024 Addendum: 08/01/2024: Case sent 07/31/2024: Gluc 101 Not available 11/19/2024 12:11:22 Plan of Treatment Reminders Order Date Submit Date Provider Last Modified By Organization Details Last Modified Time Details Appointments New Patient 40 2024 02:00P IZA Greenberg Not available Not available Not available Follow Up 15 2024 03:45P Amanda zavala MD Not available Not available Not available Lab vitamin D, 25-hydrox y, total, serum [email or web address] [place] [address] (Lab), [address] [place], [address], 11/26/2024 10:38:45 lipid panel, serum 2024 025 ESME [facility] (Lab), [address] [place], [address], 11/19/2024 20:06:19 CBC w/ auto diff 2024 025 [facility] (Lab), [address] [place], [address], 11/19/2024 19:53:14 CMP, serum or plasma 2024 025 [facility] (Lab), [address] [place], [address], 11/19/2024 20:06:24 TSH, serum or plasma 2024 025 [facility] (Lab), [address] [place], [address], 11/19/2024 20:39:45 vitamin B12 + folate, serum or blood [address] (Lab), [address] [place], [address], 11/26/2024 10:38:45 vitamin D, 25-hydrox y, total, serum [address] (Lab), [address] [place], [address], 08/07/2024 18:02:41 lipid panel, serum 2024 025 [facility] (Lab), [address] [place], [address], 07/31/2024 15:25:14 CBC w/ auto diff 2024 025 [facility] (Lab), [address] [place], [address], 07/31/2024 14:25:16 CMP, serum or plasma 2024 025 [facility] (Lab), [address] [place], [address], 07/31/2024 15:25:30 TSH, serum or plasma 2024 025 ESME [facility] (Lab), [address] [place], [address], 07/31/2024 15:58:15 vitamin B12 + folate, serum or blood 2024 025 [email or web address] [facility] (Lab), [address] [place], [address], 08/07/2024 18:02:41 vitamin D, 25-hydrox y, total, serum [address] (Lab), [address] [place], [address], 03/26/2024 14:31:48 lipid panel, serum [address] (Lab), [address] [place], [address], 03/26/2024 14:32:19 Referral psychiatr ist referral - Please call patient to schedule an appointme nt. Thank you. 2024 025 [email or web address] Inga Calvo Pmhnp, [address] [facility] [address], [place], [address], 11/26/2024 09:54:58 urologist referral - Please call patient to schedule. Note from provider: Pt has history of low testoster one. Needs consult for these issues. 2023 024 [email or web address] [facility] [address], [address], [place], [address], 08/11/2024 08:09:17 Procedures upper endoscopy procedure (EGD) (PROC) - Please call patient to schedule an appointme nt. Thank you. 2024 025 [email or web address] Chris Ewing MD, [address], [address], [place], [address], 11/05/2024 09:03:23 Surgeries None recorded. Imaging None recorded. Medication Orders Zepbound 5 mg/0.5 mL subcutane ous pen injector 2024 025 ESME [id number], [address], [place], [place], [id number], 11/19/2024 12:26:53 trazodone 50 mg tablet 2024 025 [email or web address] [facility] #[facility]751, [address], [place], [place], [id number], 11/20/2024 10:07:06 Zepbound 2.5 mg/0.5 mL subcutane ous pen injector 2024 025 [email or web address] [facility] #01517, [address], [place], [place], [id number], 11/19/2024 11:28:42 Wegovy 2.4 mg/0.75 mL subcutane ous pen injector 2023 024 [email or web address] [facility] #00822, [address], [place], [place], [id number], 07/30/2024 16:19:38 Patient TargetsNo targets recorded. Patient Instructions Encounter Date Encounter Id Patient Instructions Last Modified By Organization Details Last Modified Time 12/05/2023 [id number] Follow up in 4 months Prescription sent to pharmacy Referral: Dr. Tejeda-urology- decreased libido/low testosterone Recommend: Not available 12/05/2023 09:53:54 03/26/2024 [id number] Follow up in 6 months Obtain labs Tests: Referral: Recommend: Not available 03/21/2024 20:37:49 Reason for Referral Urologist Referral for Reduc ed libido Please call patient to schedule.Note from provider: Pt has history of low testosterone. Needs consult for these issues. Referring Physician: Soco Murphy, Internal Medicine, Encounter Date: 12/05/2023 Psychiatrist Referral for Mo derate recurrent major depression Please call patient to schedule an appointment. Thank you. Referring Physician: Ta Castillo, Internal Medicine, Encounter Date: 11/19/2024 Results Created Date Observation Date Name Description Value Unit Range Abnormal Flag Note LastModifiedBy Organization Detail LastModifiedTime 08/01/19 25 07/31/2024 CBC/C OMPLE TE BLD COUNT W/DIF F white blood cells 5.9 x10'3 /uL 4.2-10 .8 Not Available [facility] (Lab) [address] [place], [address], 07/31/2024 14:25:16 08/01/19 25 07/31/2024 CBC/C OMPLE TE BLD COUNT W/DIF F red blood cells 5.49 x10'6 /uL 4.10-5 .80 Not Available [facility] (Lab) [address] [place], [address], 07/31/2024 14:25:16 08/01/19 25 07/31/2024 CBC/C OMPLE TE BLD COUNT W/DIF F hemoglobin 16.4 g/dL 13.2-1 7.0 Not Available [facility] (Lab) [address] [place], [address], 07/31/2024 14:25:16 08/01/19 25 07/31/2024 CBC/C OMPLE TE BLD COUNT W/DIF F hematocrit 47.9 % 39.3-5 0.0 Not Available [facility] (Lab) [address] [place], [address], 07/31/2024 14:25:16 08/01/19 25 07/31/2024 CBC/C OMPLE TE BLD COUNT W/DIF F mean red cell volume 87.2 fL 80.0-9 7.0 Not Available [facility] (Lab) [address] [place], [address], 07/31/2024 14:25:16 08/01/19 25 07/31/2024 CBC/C OMPLE TE BLD COUNT W/DIF F mean red cell hemoglobin 29.9 pg 27.0-3 3.0 Not Available [facility] (Lab) [address] [place], [address], 07/31/2024 14:25:16 08/01/19 25 07/31/2024 CBC/C OMPLE TE BLD COUNT W/DIF F mean RBC HGB concentratio n 34.2 g/dL 31.0-3 6.0 Not Available [facility] (Lab) [address] [place], [address], 07/31/2024 14:25:16 08/01/19 25 07/31/2024 CBC/C OMPLE TE BLD COUNT W/DIF F red cell distribution width 13.5 % 11.8-1 5.5 Not Available [facility] (Lab) [address] [place], [address], 07/31/2024 14:25:16 08/01/19 25 07/31/2024 CBC/C OMPLE TE BLD COUNT W/DIF F platelets 309 x10'3 /uL 150-40 0 Not Available [facility] (Lab) [address] [place], [address], 07/31/2024 14:25:16 08/01/19 25 07/31/2024 CBC/C OMPLE TE BLD COUNT W/DIF F mean platelet volume 10.3 fL 9.0-12 .4 Not Available [facility] (Lab) [address] [place], [address], 07/31/2024 14:25:16 08/01/19 25 07/31/2024 CBC/C OMPLE TE BLD COUNT W/DIF F neutrophils 50.5 % 39.0-7 2.0 Not Available [facility] (Lab) [address] [place], [address], 07/31/2024 14:25:16 08/01/19 25 07/31/2024 CBC/C OMPLE TE BLD COUNT W/DIF F lymphocytes 41.5 % 16.0-4 7.0 Not Available [facility] (Lab) [address] [place], [address], 07/31/2024 14:25:16 08/01/19 25 07/31/2024 CBC/C OMPLE TE BLD COUNT W/DIF F monocytes 4.4 % 5.0-12 .0 low Not Available [facility] (Lab) [address] [place], [address], 07/31/2024 14:25:16 08/01/19 25 07/31/2024 CBC/C OMPLE TE BLD COUNT W/DIF F eosinophils 2.0 % 1.0-7. 0 Not Available [facility] (Lab) [address] [place], [address], 07/31/2024 14:25:16 08/01/19 25 07/31/2024 CBC/C OMPLE TE BLD COUNT W/DIF F basophils 1.4 % 0.0-2. 0 Not Available [facility] (Lab) [address] [place], [address], 07/31/2024 14:25:16 08/01/19 25 07/31/2024 CBC/C OMPLE TE BLD COUNT W/DIF F immature granulocytes 0.2 % 0.00-0 .50 Not Available [facility] (Lab) [address] [place], [address], 07/31/2024 14:25:16 08/01/19 25 07/31/2024 CBC/C OMPLE TE BLD COUNT W/DIF F neutrophils, absolute count 2.96 x10'3 /uL 1.5-8. 0 Not Available [facility] (Lab) [address] [place], [address], 07/31/2024 14:25:16 08/01/19 25 07/31/2024 CBC/C OMPLE TE BLD COUNT W/DIF F lymphocytes, absolute count 2.43 x10'3 /uL 1.07-3 .43 Not Available [facility] (Lab) [address] [place], [address], 07/31/2024 14:25:16 08/01/19 25 07/31/2024 CBC/C OMPLE TE BLD COUNT W/DIF F monocytes, absolute count 0.26 x10'3 /uL 0.29-0 .99 low Not Available [facility] (Lab) [address] [place], [address], 07/31/2024 14:25:16 08/01/19 25 07/31/2024 CBC/C OMPLE TE BLD COUNT W/DIF F eosinophils, absolute count 0.12 x10'3 /uL 0.02-0 .53 Not Available [facility] (Lab) [address] [place], [address], 07/31/2024 14:25:16 08/01/19 25 07/31/2024 CBC/C OMPLE TE BLD COUNT W/DIF F basophils, absolute count 0.08 x10'3 /uL 0.01-0 .08 Not Available [facility] (Lab) [address] [place], [address], 07/31/2024 14:25:16 08/01/19 25 07/31/2024 CBC/C OMPLE TE BLD COUNT W/DIF F immature granulocytes ,absolute 0.01 x10'3 /uL 0.00-0 .05 Not Available [facility] (Lab) [address] [place], [address], 07/31/2024 14:25:16 08/01/19 25 07/31/2024 CBC/C OMPLE TE BLD COUNT W/DIF F nucleated red blood cells 0.0 % -0 Not Available [facility] (Lab) [address] [place], [address], 07/31/2024 14:25:16 08/01/19 25 07/31/2024 CBC/C OMPLE TE BLD COUNT W/DIF F NRBC# 0.00 x10'3 /uL Not Available [facility] (Lab) [address] [place], [address], 07/31/2024 14:25:16 08/01/19 25 07/31/2024 LIPID PANEL cholesterol 131 mg/dL 140-19 9 low NIH JOVANNA NSUS RECOM MENDA TION FOR DANDRE STERO L: ADULT CHILD LOW RISK: <200 <170 BORDE RLINE : <200- 239 ----- HIGH RISK: >240 >200 Not Available [facility] (Lab) [address] [place], [address], 07/31/2024 15:25:14 08/01/19 25 07/31/2024 LIPID PANEL triglyceride s 145 mg/dL 0-150 NIH JOVANNA NSUS REPOR T RECOM MENDA TION FOR TRIGL YCERI VAL: ADULT CHILD LOW RISK: <150 ----- BODER LINE: 150-1 99 ----- HIGH RISK: >200 ----- Not Available [facility] (Lab) [address] [place], [address], 07/31/2024 15:25:14 08/01/19 25 07/31/2024 LIPID PANEL HDL cholesterol 49 mg/dL 40- Not Available [facility] (Lab) [address] [place], [address], 07/31/2024 15:25:14 08/01/19 25 07/31/2024 LIPID PANEL LDL cholesterol, calculated 53 mg/dL 0-130 NIH JOVANNA NSUS REPOR T RECOM MENDA TIONS FOR LDL: ADULT CHILD LOW RISK <130 <110 (OPTI MAL LDL) <100 ----- BORDE RLINE : 130-1 59 ----- HIGH RISK: >160 >130 A TRIGL YCERI DE RESUL T >400 INVAL IDATE S THE CALCU LATIO N FOR LDL FRACT IONAT ION - THE LDL RESUL T WILL NOT BE REPOR JALIL. Not Available [facility] (Lab) [address] [place], [address], 07/31/2024 15:25:14 08/01/19 25 07/31/2024 COMPR EHENS ALEXSANDER METAB OLIC PANEL sodium 140 mmol/ L 137-14 5 Not Available [facility] (Lab) [address] [place], [address], 07/31/2024 15:25:30 08/01/19 25 07/31/2024 COMPR EHENS ALEXSANDER METAB OLIC PANEL potassium 4.1 mmol/ L 3.5-5. 1 Not Available [facility] (Lab) [address] [place], [address], 07/31/2024 15:25:30 08/01/19 25 07/31/2024 COMPR EHENS ALEXSANDER METAB OLIC PANEL chloride 103 mmol/ L 98-107 Not Available [facility] (Lab) [address] [place], [address], 07/31/2024 15:25:30 08/01/19 25 07/31/2024 COMPR EHENS ALEXSANDER METAB OLIC PANEL carbon dioxide 28 mmol/ L 22-30 Not Available [facility] (Lab) [address] [place], [address], 07/31/2024 15:25:30 08/01/19 25 07/31/2024 COMPR EHENS ALEXSANDER METAB OLIC PANEL anion gap 13.1 mmol/ L 14-22 low Not Available [facility] (Lab) [address] [place], [address], 07/31/2024 15:25:30 08/01/19 25 07/31/2024 COMPR EHENS ALEXSNADER METAB OLIC PANEL glucose 101 mg/dL 70-99 high Not Available [facility] (Lab) [address] [place], [address], 07/31/2024 15:25:30 08/01/19 25 07/31/2024 COMPR EHENS ALEXSANDER METAB OLIC PANEL BUN 14 mg/dL 8-19 Not Available [facility] (Lab) [address] [place], [address], 07/31/2024 15:25:30 08/01/19 25 07/31/2024 COMPR EHENS ALEXSANDER METAB OLIC PANEL creatinine 0.99 mg/dL 0.66-1 .25 Not Available [facility] (Lab) [address] [place], [address], 07/31/2024 15:25:30 08/01/19 25 07/31/2024 COMPR EHENS ALEXSANDER METAB OLIC PANEL GFR >60 Refer ence Range : Blossom ge GFR Healt hy Adult : >60 mL/mi n/1.7 3 m2 Chron ic Kidne y Disea se: 15-60 mL/mi n/1.7 3 m2 Kidne y Failu re: <15/m L/min /1.73 m2 www.n iddk. nih.g ov The MDRD study equat ion has not been valid ated in child radha <18 years of age; pregn ant women ; the elder ly >85 years of age; or in some racia l or ethni c subgr oups, such as Hispa nics. Outsi de the valid ated wilver eters , estim ated GFR is less accur ate, requi ring clini tre judgm ent on a case- by-ca se basis . Clini tre inter preta tion for other races and ages must be made by the clini nikki. The MDRD study equat ion has not been valid ated for the evalu ation of serum creat inine relat ed to nutri jordin l statu s or medic ation usage . For perso ns <18 years of age, a pedia tric GFR calcu cezar is avail able on the [facility] websi te: https ://radha junior.ant tripathi.o rg/pr ofess ional s/kdo qi/gf r_cal culat or Not Available [facility] (Lab) [address] [place], [address], 07/31/2024 15:25:30 08/01/19 25 07/31/2024 COMPR EHENS ALEXSANDER METAB OLIC PANEL alkaline phosphatase 63 U/L 38-126 Not Available [facility] (Lab) [address] [place], [address], 07/31/2024 15:25:30 08/01/19 25 07/31/2024 COMPR EHENS ALEXSANDER METAB OLIC PANEL alanine aminotransfe rase 29 U/L 0-50 Not Available [facility] (Lab) [address] [place], [address], 07/31/2024 15:25:30 08/01/19 25 07/31/2024 COMPR EHENS ALEXSANDER METAB OLIC PANEL aspartate aminotransfe rase 29 U/L 15-46 Not Available [facility] (Lab) [address] [place], [address], 07/31/2024 15:25:30 08/01/19 25 07/31/2024 COMPR EHENS ALEXSANDER METAB OLIC PANEL bilirubin, total 0.40 mg/dL 0.20-1 .30 Not Available [facility] (Lab) [address] [place], [address], 07/31/2024 15:25:30 08/01/19 25 07/31/2024 COMPR EHENS ALEXSANDER METAB OLIC PANEL calcium 9.8 mg/dL 8.4-10 .2 Not Available [facility] (Lab) [address] [place], [address], 07/31/2024 15:25:30 08/01/19 25 07/31/2024 COMPR EHENS ALEXSANDER METAB OLIC PANEL total protein 7.2 g/dL 6.3-8. 2 Not Available [facility] (Lab) [address] [place], [address], 07/31/2024 15:25:30 08/01/19 25 07/31/2024 COMPR EHENS ALEXSANDER METAB OLIC PANEL albumin 4.4 g/dL 3.4-5. 0 Not Available [facility] (Lab) [address] [place], [address], 07/31/2024 15:25:30 08/01/19 25 07/31/2024 COMPR EHENS ALEXSANDER METAB OLIC PANEL globulin 2.8 g/dL 2.6-4. 2 Not Available [facility] (Lab) [address] [place], [address], 07/31/2024 15:25:30 08/01/19 25 07/31/2024 COMPR EHENS ALEXSANDER METAB OLIC PANEL A/G ratio 1.6 ratio 1.0-2. 0 Not Available [facility] (Lab) [address] [place], [address], 07/31/2024 15:25:30 08/01/19 25 07/31/2024 VITAM IN D 25-HY DROXY vd25oh 35.7 NG/mL 30-100 Vitam in D Statu s: Defic ient: <20 ng/mL Insuf ficie nt: 20-29 ng/mL Suffi cient : 30-10 0 ng/mL Not Available [facility] (Lab) [address] [place], [address], 07/31/2024 15:42:03 08/01/19 25 07/31/2024 TSH W/REF WILFRID FT4 TSH with reflex free T4 2.010 uIU/m L 0.465- 4.680 Not Available [facility] (Lab) [address] [place], [address], 07/31/2024 15:58:15 08/01/19 25 07/31/2024 VITAM IN B12 (JAY SARTHAK ) vb12 696 pg/mL 239-93 1 Not Available [facility] (Lab) [address] [place], [address], 07/31/2024 16:40:54 08/01/19 25 07/31/2024 FOLAT E, SERUM /PLAS MA folate 6.06 NG/mL 2.76-2 0.0 Not Available [facility] (Lab) [address] [place], [address], 07/31/2024 16:40:55 Result Notes None recorded. Problems Name Problem SNOMED Code Status Onset Date Resolution Date Notes Provider Name and Address Organization Details Recorded Time Otalgia 95626889 Active Not Available [facility] 3 00:09:04 Anxiety state 014334000 Active Soco Murphy APRN [address], [place] [address], [place], [address] , [employer] 4 10:16:32 Gastroesop hageal reflux disease 802512777 Active Soco Murphy APRN [address], [place] [address], [place], [address] , [employer] 4 10:16:36 Blood pressure above reference range 39764345 Active Soco Murphy APRN [address], [address], [place], [address] , [employer] 4 10:16:34 Current tear of medial cartilage AND/OR meniscus of knee Active Not Available [employer] 3 00:09:04 Painless rectal bleeding 288424372 Active Not Available [employer] 3 00:09:04 Hyperlipid emia 31873683 Active JERRY Lyons [address], [place], [address] , [place] [facility] 4 10:16:41 Pain in left knee Active 2018 Not Available [facility] 3 00:09:04 Essential hypertensi on 42370099 Active 2019 Not Available [facility] 3 00:09:04 Liver function tests outside reference range 119320156 Active 2021 Scoo Murphy APRN [address], [address], [place], [address] , [place] [facility] [place] [employer] [facility] 4 10:16:43 Overweight 532890870 Active 2022 Soco Murphy APRN [address], [address], [place], [address] , [employer] [facility] [employer] 4 10:16:50 Pain of right knee region 1368269344895 05 Active 2022 SILVIA Bearden, [employer] [facility] [employer] 3 12:33:43 Reduced libido 1956585 Active 2023 Soco Murphy APRN [address], [address], [place], [address] , [facility] 4 10:26:25 Gastroesop hageal reflux disease without esophagiti s 523691517 Active [address], [address], [place], [address] , [employer] [facility] 4 08:22:54 Vitamin D deficiency 77782934 Active [address], [address], [place], [address] , [place] [facility] 4 14:13:36 Serum vitamin B12 below reference range 595624731 Active 2024 Ta christine MD [address], [address], [place], [address] , [facility] [employer] [facility] [employer] [facility] 5 12:52:24 Attention deficit hyperactiv ity disorder 720580059 Active 2024 Ta christine MD [address] [facility], [place] [address], [place], [address] , [facility] [employer] [facility] [employer] [facility] 5 12:54:05 Moderate recurrent major depression 37046193 Active 2024 Ta christine MD [address] [facility], [place] [place] [address], [place], [address] , [facility] [employer] [facility] [employer] [facility] 5 12:57:37 Obesity 501564146 Active 2024 Ta christine MD [address] [facility], [place] [place] [address], [place], [address] , [facility] [employer] [facility] [employer] [facility] 5 16:19:32 Obese class I 0332598990505 07 Active 2024 Ta christine MD [address] [facility], [place] [address], [place], [address] , [employer] [facility] [employer] [facility] 5 14:05:09 Problem Notes None recorded. Procedures Surgical History Date Name Laterality Status Provider Name and Address Organization Details Recorded Time repair of meniscus completed Alla Sanford MA [employer] [facility] [employer] 09/26/2023 10:12:25 Imaging Results None recorded. Procedure Notes None recorded. Medical Equipment None Reported. Allergies Allergen ID Allergen Name Allergen Category Reaction Reaction Severity Criticality Documentation Date Start Date Code Code System Note Provider Name and Address Organization Details Recorded Time 6086 Substance with sulfonami de structure and antibacte rial mechanism of action (substanc e) medicatio n Not available Not available Not available 06/14/2022 86124 8003 SNOMED Other react ions and sever ities : 'Adve rse react ion to subst ance' . Soco Murphy APRN [address] [facility], [address], [place], [address], [facility] [employer] [facility] [employer] [facility] 4 12:16:56 Medications Name Sig Start Date Stop Date Status Note LastModified by Organization Details LastModified Time Prescriptio n - Renewal active Not Available Not Available Not Available Prescriptio n - Prior Authorizati on Request 01/30 completed Not Available Not Available Not Available quetiapine 25 mg tablet TK 1 TO 2 TS PO QHS active Not Available Not Available No t Available amoxicillin 500 mg capsule 06/06 completed Not Available Not Available Not Available dicloxacill in 500 mg capsule TK 1 C PO BID WF active Not Available Not Available No t Available buspirone 5 mg tablet active Not Available Not Available No t Available oxcarbazepi ne 150 mg tablet TAKE 1 TABLET BY MOUTH EVERY DAY 07/14 completed Not Available Not Available Not Available prednisone 10 mg tablet TAKE 1 TABLET BY MOUTH TWICE DAILY 09/25 completed Not Available Not Available Not Available doxycycline hyclate 100 mg capsule TAKE 1 CAPSULE BY MOUTH DAILY WITH A FULL GLASS OF WATER. DO NOT LIE DOWN UNTIL 1-2 HOURS AFTER TAKING 07/14 completed Not Available Not Available Not Available atorvastati n 20 mg tablet TAKE 1 TABLET BY MOUTH EVERY DAY 03/05 completed Not Available Not Available Not Available ketoconazol e 2 % shampoo APPLY EXTERNALL Y TO THE SCALP 2 TIMES A WEEK 01/30 completed Not Available Not Available Not Available clindamycin HCl 300 mg capsule active Not Available Not Available Not Available trazodone 50 mg tablet Take 2 tablets as needed by oral route as needed for 90 days. 2024 active Not Available Not Available Not Avai lable atorvastati n 10 mg tablet TAKE 1 TABLET BY MOUTH EVERY DAY active Not Available Not Available No t Available azithromyci n 250 mg tablet 07/14 completed Not Available Not Available Not Available ibuprofen 800 mg tablet 09/02 completed Not Available Not Available Not Available fluconazole 150 mg tablet TAKE 2 TABLETS BY MOUTH TODAY THEN REPEAT IN 7 DAYS. TAKE WITH DARK SODA 06/29 completed Not Available Not Available Not Available hydrocodone 5 mg-acetamin ophen 325 mg tablet TAKE 1 TABLET BY MOUTH AT BEDTIME NEEDED FOR PAIN 09/25 completed Not Available Not Available Not Available naltrexone 50 mg tablet TAKE 1 TABLET BY MOUTH EVERY DAY 10/27 completed Not Available Not Available Not Available ondansetron HCl 4 mg tablet TAKE 1 TABLET BY MOUTH EVERY 8 HOURS 07/30 completed Not Available Not Available Not Available prednisone 20 mg tablet TAKE 3 TABLETS BY MOUTH EVERY DAY FOR 5 DAYS 10/27 completed Not Available Not Available Not Available sertraline 100 mg tablet TAKE 1 TABLET BY MOUTH EVERY MORNING AT 8 AM active Not Available Not Available No t Available quetiapine 200 mg tablet TAKE 1 TABLET BY MOUTH EVERY DAY AT BEDTIME 07/14 completed Not Available Not Available Not Available clobetasol 0.05 % topical cream active Not Available Not Available Not Available hydroxyzine pamoate 50 mg capsule TAKE 1 CAPSULE BY MOUTH THREE TIMES DAILY DIRECTED 12/04 completed Not Available Not Available Not Available acetaminoph en 300 mg-codeine 30 mg tablet 07/10 completed Not Available Not Available Not Available sulfamethox azole 800 mg-trimetho prim 160 mg tablet active Not Available Not Available Not Available tramadol 50 mg tablet 09/02 completed Not Available Not Available Not Available quetiapine 100 mg tablet TAKE 2 TABLETS BY MOUTH EVERY NIGHT 11/19 completed Not Available Not Available Not Available amoxicillin 500 mg tablet TAKE 1 TABLET BY MOUTH THREE TIMES DAILY UNTIL GONE 11/19 completed Not Available Not Available Not Available cyproheptad ine 4 mg tablet active Not Available Not Available Not Available risperidone 2 mg tablet 10/27 completed Not Available Not Available Not Available amoxicillin 875 mg tablet 06/06 completed Not Available Not Available Not Available lorazepam 0.5 mg tablet TAKE 1 TABLET BY MOUTH TWICE DAILY NEEDED active Not Available Not Available No t Available ciprofloxac in 0.3 % eye drops INSTILL 1 DROP INTO AFFECTED EYE(S) BY OPHTHALMI C ROUTE EVERY 2 HOURSWHIL E AWAKE FOR 2 DAYS THEN 1 DROP EVERY 4 HRS WHILE AWAKE FOR 5 DAYS active Not Available Not Available No t Available lorazepam 2 mg tablet 09/02 completed Not Available Not Available Not Available baclofen 10 mg tablet TAKE 1 TABLET BY MOUTH THREE TIMES DAILY NEEDED DIRECTED active Not Available Not Available No t Available benzonatate 100 mg capsule TAKE 1 CAPSULE BY MOUTH EVERY 8 HOURS NEEDED 07/14 completed Not Available Not Available Not Available pantoprazol e 40 mg tablet,jimmie yed release TAKE 1 TABLET BY MOUTH EVERY DAY active Not Available Not Available No t Available erythromyci n 5 mg/gram (0.5 %) eye ointment APPLY A SMALL AMOUNT TO AFFECTED EYE BID active Not Available Not Available No t Available oseltamivir 75 mg capsule TAKE 1 CAPSULE BY MOUTH EVERY 12 HOURS FOR 5 DAYS 07/14 completed Not Available Not Available Not Available dexamethaso ne 4 mg tablet 09/02 completed Not Available Not Available Not Available buspirone 10 mg tablet Take 1 tablet twice a day by oral route for 90 days. active Not Available Not Available No t Available omeprazole 20 mg capsule,del ayed release Take 1 capsule every day by oral route. 11/10 completed OTC Not Available Not Available Not Available lisinopril 20 mg-hydrochl orothiazide 25 mg tablet TAKE 1 TABLET BY MOUTH EVERY DAY active Not Available Not Available No t Available diclofenac sodium 75 mg tablet,jimmie yed release TAKE 1 TABLET BY MOUTH TWICE DAILY active Not Available Not Available No t Available dextroamphe tamine-amph etamine ER 10 mg 24hr capsule,ext end release TAKE 1 CAPSULE BY MOUTH EVERY DAY IN THE MORNING 08/24 completed Not Available Not Available Not Available desonide 0.05 % lotion active Not Available Not Available Not Available zaleplon 10 mg capsule active Not Available Not Available N ot Available selenium sulfide 2.5 % shampoo active Not Available Not Available No t Available Cipro HC 0.2 %-1 % ear drops,suspe nsion Instill 3 drops every 12 hours by otic route. active Not Available Not Available No t Available albuterol sulfate HFA 90 mcg/actuati on aerosol inhaler INHALE 2 PUFFS EVERY 4 HOURS 07/14 completed Not Available Not Available Not Available Cortisporin -TC 3.3 mg-3 mg-10 mg-0.5 mg/mL ear drops,suspe nsion INSTILL 5 DROPS 3-4 TIMES DAILY active Not Available Not Available No t Available hydroxyzine HCl 10 mg tablet TAKE 1 TABLET BY MOUTH FOUR TIMES DAILY 12/04 completed Not Available Not Available Not Available clobetasol 0.05 % scalp solution APPLY TO SCALP SORES TWICE DAILY FOR UP TO 28 DAYS THEN TAKE 2 WEEK BREAK BEFORE RESUMING 01/30 completed Not Available Not Available Not Available sertraline 50 mg tablet TK 1 T PO QD active Not Available Not Available No t Available doxycycline hyclate 100 mg tablet TK 1 T PO BID WC active Not Available Not Available No t Available diazepam 5 mg tablet TK 1 T PO THE NIGHT PRIOR TO APPOINTME NT 09/02 completed Not Available Not Available Not Available amoxicillin 875 mg-potassiu m clavulanate 125 mg tablet TAKE 1 TABLET BY MOUTH EVERY 12 HOURS FOR 10 DAYS 07/14 completed Not Available Not Available Not Available buspirone 15 mg tablet TAKE 1 TABLET BY MOUTH THREE TIMES DAILY 2024 active Not Available Not Available Not Avai lable tobramycin 0.3 %-dexametha sone 0.1 % eye drops,suspe nsion 07/11 completed Not Available Not Available Not Available hydroxyzine pamoate 25 mg capsule TAKE 1 CAPSULE BY MOUTH TWO TIMES DAILY 12/04 completed Not Available Not Available Not Available neomycin 3.5 mg/g-polymy anne B 10,000 unit/g-dexa meth 0.1 % eye oint APPLY TO AFFECTED RIGHT EYE TWICE DAILY FOR 10 DAYS 12/04 completed Not Available Not Available Not Available clindamycin 1 % lotion active Not Available Not Available N ot Available atomoxetine 25 mg capsule TAKE 1 CAPSULE BY MOUTH EVERY DAY FOR 7 DAYS THEN 2 CAPSULES EVERY MORNING FOR 7 DAYS THEN INCREASE TO 80 MG 08/24 completed Not Available Not Available Not Available atomoxetine 40 mg capsule TAKE 1 CAPSULE BY MOUTH EVERY MORNING. SWALLOW WHOLE 03/20 completed Not Available Not Available Not Available bupropion HCl XL 300 mg 24 hr tablet, extended release TAKE 1 TABLET BY MOUTH EVERY DAY 07/14 completed Not Available Not Available Not Available bupropion HCl XL 150 mg 24 hr tablet, extended release TAKE 1 TABLET BY MOUTH EVERY DAY IN THE MORNING FOR 7 DAYS 07/14 completed Not Available Not Available Not Available topiramate 50 mg tablet TAKE 1 TABLET BY MOUTH EVERY EVENING AT 9 PM 2024 active Not Available Not Available Not Avai lable erythromyci n with ethanol 2 % topical solution 09/02 completed Not Available Not Available Not Available duloxetine 30 mg capsule,del ayed release TAKE 3 CAPSULES BY MOUTH EVERY DAY 12/04 completed Not Available Not Available Not Available duloxetine 60 mg capsule,del ayed release TAKE 1 CAPSULE BY MOUTH EVERY DAY. START AFTER FINISHING 30 MG CAPSULE 12/04 completed Not Available Not Available Not Available melatonin 03/05 completed Not Available Not Available Not Available Benadryl 03/05 completed Not Available Not Available Not Available multivitami n 03/05 completed Not Available Not Available Not Available atomoxetine 80 mg capsule TAKE 1 CAPSULE BY MOUTH EVERY DAY 09/25 completed Not Available Not Available Not Available atomoxetine 100 mg capsule TAKE 1 CAPSULE BY MOUTH EVERY MORNING 11/19 completed Not Available Not Available Not Available quetiapine 400 mg tablet TAKE 1 TABLET BY MOUTH EVERY NIGHT 12/04 completed Not Available Not Available Not Available Suprep Bowel Prep Kit 17.5 gram-3.13 gram-1.6 gram oral solution MIX AND DRINK UTD active Not Available Not Available No t Available Vicodin 5 mg-300 mg tablet 09/02 completed Not Available Not Available Not Available COVID-19 test specimen collection USE DIRECTED 07/14 completed Not Available Not Available Not Available Qelbree 200 mg capsule,ext ended release TAKE 2 CAPSULES BY MOUTH EVERY DAY FOR 30 DAYS 08/24 completed Not Available Not Available Not Available Wegovy 2.4 mg/0.75 mL subcutaneou s pen injector INJECT 2.4 MG UNDER THE SKIN ONCE EVERY WEEK FOR WEIGHT LOSS 07/30 completed Not Available Not Available Not Available Wegovy 1.7 mg/0.75 mL subcutaneou s pen injector Inject 0.75 mL every week by subcutane ous route as directed. 02/03 completed Not Available Not Available Not Available Wegovy 1 mg/0.5 mL subcutaneou s pen injector 12/04 completed Not Available Not Available Not Available Wegovy 0.25 mg/0.5 mL subcutaneou s pen injector INJECT 0.25 MG UNDER THE SKIN ONCE WEEKLY FOR 4 WEEKS, THEN GO TO 0.5 MG WEEKLY FOR 4 WEEKS 09/25 completed Not Available Not Available Not Available Wegovy 0.5 mg/0.5 mL subcutaneou s pen injector 12/04 completed Not Available Not Available Not Available Zepbound 5 mg/0.5 mL subcutaneou s pen injector ADMINISTE R 5 MG UNDER THE SKIN EVERY WEEK active Not Available Not Available No t Available Zepbound 2.5 mg/0.5 mL subcutaneou s pen injector ADMINISTE R 2.5 MG UNDER THE SKIN EVERY WEEK 11/19 completed Not Available Not Available Not Available Vitals Date Recorded Body height Body mass index (BMI) Body weight Body temperature Heart rate Systolic And Diastolic Provider Name and Address Organization Details Last Updated DateTime 5 180.34 cm 32.6 kg/m2 031233. 61 g 98.7 [degF] 90 /min 120/80 mm[Hg] SILVIA Figueroa CO [facility] [employer] 5 15:48:33 Date Recorded Body height Body mass index (BMI) Body weight Body temperature Heart rate Oxygen saturation Oxygen saturation in Arterial blood by Pulse oximetry Pain severity - 0-10 verbal numeric rating [Score] - Reported Systolic And Diastolic Provider Name and Address Organization Details Last Updated DateTime 5 180.34 cm 32.6 kg/m2 425326. 61 g 97.8 [degF] 67 /min 99 % 99 % 0 106/72 mm[Hg] Alla Sanford MA [facility] [employer] 5 11:27:39 Date Recorded Body height Body mass index (BMI) Body weight Body temperature Heart rate Oxygen saturation Oxygen saturation in Arterial blood by Pulse oximetry Systolic And Diastolic Provider Name and Address Organization Details Last Updated DateTime 4 180.34 cm 32.9 kg/m2 317744. 8 g 97 [degF] 90 /min 98 % 98 % 106/76 mm[Hg] Alla Sanford MA CO [employer] [facility] [employer] 4 09:38:34 Date Recorded Body height Body mass index (BMI) Body weight Body temperature Heart rate Oxygen saturation Oxygen saturation in Arterial blood by Pulse oximetry Systolic And Diastolic Provider Name and Address Organization Details Last Updated DateTime 4 180.34 cm 31.7 kg/m2 720436. 47 g 97.2 [degF] 106 /min 98 % 98 % 124/76 mm[Hg] Mary Kate George RN [facility] [employer] 14:05:39 Social History Question Answer Notes LastModified by Organization Details LastModified Time Tobacco Smoking Status Never Smoker SILVIA Araiza, TONY - [facility] 01/30/2023 10:19:13 Do You Have An Advance Directive? No [id number] Information not available 06/14/2022 What Is Your Level Of Caffeine Consumption? Moderate [id number] Information not available 06/14/2022 How Much Tobacco Do You Chew? None [id number] Information not available 06/14/2022 In The 14 Days Before Symptom Onset, Have You Had Close Contact With A Laboratory-confi rmed COVID-19 While That Case Was Ill? No Information not available 01/30/2023 In The 14 Days Before Symptom Onset, Have You Had Close Contact With A Person Who Is Under Investigation For COVID-19 While That Person Was Ill? No Information not available 01/30/2023 What Type Of Diet Are You Following? REGULAR Information not available 03/26/2024 Which Illicit Or Recreational Drugs Have You Used? Marijuana Vape & Edibles [email or web address] Information not available 01/30/2023 What Is The Highest Grade Or Level Of School You Have Completed Or The Highest Degree You Have Received? [id number] Information not available 01/30/2023 Have There Been Any Changes To Your Family Or Social Situation? No Information not available 01/30/2023 What Is The Fluoride Status Of Your Home? Unknown Information not available 01/30/2023 Are There Any Guns Present In Your Home? No Information not available 01/30/2023 Do You Use Insect Repellent Routinely? No Information not available 01/30/2023 Where Do You Live? SingleLevelHouse Information not available 01/30/2023 Do You Have A Medical Power Of Executive Associate? No Information not available 01/30/2023 What Was The Date Of Your Most Recent Tobacco Screening? 11/19/2024 [email or web address] Information not available 11/19/2024 Have You Ever Been Counseled For Unhealthy Alcohol Use? No Information not available 01/30/2023 Do You Have Any Pets? Yes Information not available 01/30/2023 What Is Your Relationship Status? [id number] Information not available 06/14/2022 Do You Use Your Seat Belt Or Car Seat Routinely? Yes Information not available 01/30/2023 Do You Have Smoke And Carbon Monoxide Detectors In Your Home? Yes Information not available 01/30/2023 Are You Passively Exposed To Smoke? No Information not available 01/30/2023 Are There Any Smokers In Your House? No Information not available 01/30/2023 How Much Tobacco Do You Smoke? No [id number] Information not available 06/14/2022 What Types Of Sporting Activities Do You Participate In? None Information not available 01/30/2023 Do You Use Sunscreen Routinely? Yes Information not available 01/30/2023 Has Tobacco Cessation Counseling Been Provided? No Information not available 01/30/2023 How Many Years Have You Smoked Tobacco? 0 Information not available 01/30/2023 Have You Recently Traveled Abroad? No Information not available 01/30/2023 Have You Used IV Drugs? No Information not available 01/30/2023 Do You Have Any Dietary Restrictions? No Information not available 01/30/2023 Sex: Male Functional Status Question Answer Note LastModified by Organizat ion Details LastModified Time Do you use any illicit or recreational drugs? Yes Information not available 01/30/2023 Do you or have you ever used any other forms of tobacco or nicotine? No Information not available 01/30/2023 What is your level of alcohol consumption? None Information not available 03/26/2024 Do you or have you ever used smokeless tobacco? 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 Never used electronic cigarettes [email or web address] Information not available 07/30/2024 What is your exercise level? Moderate [id number] Information not available 06/14/2022 Mental Status Question Answer Note LastModified by Organization D etails LastModified Time Do you feel stressed (tense, restless, nervous, or anxious, or unable to sleep at night)? [id number] Information not available 01/30/2023 Family History Relationship Description Onset Age of this Age Resolved Age Notes LastModified by Organization Details LastModified Time Mother Benign essential hypertension [email or web address] Not available 07/30/2024 15:38:16 Father Benign essential hypertension [email or web address] Not available 07/30/2024 15:38:16 Father Heart disease 70 Not available 2023 14:08:41 Medical History Condition Response NERVE DISEASE N BLINDNESS N RHEUMATIC FEVER N KIDNEY STONES N BLADDER PROBLEMS N OTHER # 1 Y POLIO N LUNG DISEASE/DISORDER N RADIATION / CHEMOTHERAPY N COPD N Other # 2 Y BLOOD DISEASES N SURGERY N EAR OR HEARING PROBLEMS Y MUMPS N BOWEL PROBLEMS N DEPRESSION (INCLUDING POST ) Y STROKE/TIA N ULCERS N BENIGN PROSTATIC HYPERPLASIA N MEASLES N MYOCARDIAL INFARCTION N OBESITY N GERD/NAUSEA Y ANEURYSM N URINARY/BLADDER/KIDNEY PROBLEMS N INPATIENT PSYCH CARE N CORONARY ARTERY DISEASE (CAD) N ADDICTION CONCERNS N Impotence Y ENDOMETRIOSIS N USE OF BLOOD THINNERS N SKIN PROBLEMS N GASTROINTESTINAL DISORDER N PERIPHERAL VASCULAR DISEASE N MUSCLE,JOINT OR BONE PROBLEMS N GASTROINTESTINAL BLEEDING N BLOOD CLOTS N ASTHMA N CATARACTS N ERECTILE DYSFUNCTION N VARICOSITIES N GI PROBLEMS N Low Testosterone N INFERTILITY N AIDS/HIV N LIVER DISEASE N MALE HYPOGONADISM N HYPERTENSION Y Deficiency N ANXIETY DISORDER Y BLOOD TRANSFUSION N ANEMIA/BLOOD DISORDER N CHRONIC EAR INFECTIONS N BRONCHITIS N TUBERCULOSIS N GLAUCOMA N FOOT PROBLEM N DIVERTICULITIS N SLEEP APNEA N CHICKENPOX N INFECTIOUS DISEASE N PROSTATE N HEART ARRHYTHMIA N INSOMNIA N HIGH CHOLESTEROL / HYPERLIPIDEMIA N EYE PROBLEMS N HYPERTHYROIDISM N NEUROLOGICAL PROBLEMS N EDEMA N CHRONIC PAIN SYNDROME N HYPOTHYROIDISM N CONSTIPATION N CAROTID BLOCKAGE N BACK / NECK PROBLEMS N HAVE YOU BEEN HOSPITALIZED OR SEEN IN [facility] IN THE PAST YEAR ? N ATHEROSCLEROSIS N BREAST PROBLEMS N DIALYSIS N ECZEMA N OSTEOPOROSIS N ARTHRITIS N NO SIGNIFICANT PAST MEDICAL HISTORY N APPENDICITIS N DIABETES, TYPE N BAD TEETH N ENT N HEARTBURN / REFLUX Y AUTISM SPECTRUM DISORDER (ASD) N HEPATITIS / LIVER DISEASE N PULMONARY DISEASE N GOUT N SLEEP DISORDER N ALZHEIMER'S DISEASE N Brain Problems N DEMENTIA N HERPES N SEIZURES/EPILEPSY N HEADACHES/MIGRAINES N VASCULAR DISEASE N PACEMAKER N Blood Disorder N DIZZINESS N HEART DISEASE/HEART PROBLEMS N KIDNEY DISEASE N MULTIPLE SCLEROSIS N CANCER: SPECIFY N CARDIAC ARRHYTHMIA N ANESTHESIA COMPLICATIONS N ATRIAL FIBRILLATION N Gall Stones N PULMONARY EMBOLISM N AUTOIMMUNE DISEASE N Immunizations Vaccine Type Date Status Note Provider Nam e and Address Organization Details Recorded Time influenza, intradermal, quadrivalent, preservative free 7 completed Soco Murphy APRN [address], [address], [place], [address], [facility] [employer] [facility] 09/23/2023 12:17:16 Influenza, MDCK, quadrivalent, PF 2 completed Soco Murphy APRN [address], [address], [place], [address], [facility] [employer] [facility] 09/23/2023 12:17:16 COVID-19, mRNA, LNP-S, PF, 30 mcg/0.3 mL dose 1 completed Soco Murphy APRN [address], [address], [place], [address], [facility] [employer] [facility] 09/23/2023 12:17:16 COVID-19, mRNA, LNP-S, PF, 30 mcg/0.3 mL dose 1 completed Soco Murphy APRN [address], [address], [place], [address], [facility] [employer] [facility] 09/23/2023 12:17:16 COVID-19, mRNA, LNP-S, bivalent, PF, 30 mcg/0.3 mL dose [address], [place], [address], [facility] [employer] [facility] 09/23/2023 12:17:16 Tdap 7 completed Soco Murphy APRN [address], [address], [place], [address], [facility] [employer] [facility] 09/23/2023 12:17:16 Influenza, split virus, trivalent, preservative 3 completed Soco Murphy APRN [address], [address], [place], [address], [facility] [employer] [facility] [employer] 09/23/2023 12:17:17 COV-2 COVID-19 Inactivated Non-US Vaccine Product ([employer], KCONVAC) 4 completed Soco Murphy APRN [address], [address], [place], [address], [facility] [employer] [facility] [employer] [facility] 03/26/2024 14:09:38 COVID-19, mRNA, LNP-S, PF, altagracia-sucrose, 30 mcg/0.3 mL 4 completed Soco Murphy APRN [address], [address], [place], [address], [employer] [facility] [employer] 03/26/2024 14:09:53 Influenza, MDCK, trivalent, PF 4 completed Soco Murphy APRN [address], [address], [place], [address], [employer] [facility] [employer] 03/26/2024 14:09:53 Td(adult) unspecified formulation 2 completed Not Available [facility] 02/01/2023 00:09:04 Influenza, split virus, quadrivalent, PF 7 completed Soco Murphy APRN [address], [address], [place], [address], [employer] [facility] [employer] 09/23/2023 12:17:17 Past Encounters Encounter ID Performer Location Encounter Start Date Encounter Closed Date Diagnosis/Indication Diagnosis SNOMED-CT Code Diagnosis ICD10 Code Diagnosis IMO Codes Diagnosis Note [id number] Jesus Fernandez MD [facility] [place] [address] [place] [address] 06/29/2020 00:00:00 06/29/2020 22:12:36 [id number] Jesus Fernandez MD [facility] Internal [place] [address] [place] [address] [address] 10/26/2020 00:00:00 11/06/2020 17:22:14 [id number] [facility] Internal [place] [address] [place] [address] [place] [address] 07/14/2021 00:00:00 07/14/2021 14:43:50 [id number] [address] [facility] Internal [place] [address] [place] [address] [place] [address] 10/27/2021 00:00:00 10/29/2021 18:17:39 [id number] [address] [facility] [place] [address] [place] [address] [place] [address] 08/24/2022 14:28:16 08/24/2022 14:48:19 Essential hypertension 31841380 I10 Anxiety state 469272847 F41.1 Gastroesop hageal reflux disease 579106271 K21.9 Hyperlipidemia 56814931 E78.5 [id number] Jesus Fernandez MD [facility] Internal [place] [address] [place] [address] [place] [address] 01/30/2023 10:18:04 01/30/2023 11:28:11 Essential hypertension 94771622 I10 Hyperlipidemia 69732108 E78.5 Overweight 095702424 E66 .3 Screening for malignant neoplasm of colon 419223201 Z12.11 [id number] Ta christine MD [facility] Internal [place] [address] [place] [address] [place] [address] 09/26/2023 10:00:46 09/26/2023 10:33:18 Overweight 053410077 E66.3 Essential hypertension 53455694 I10 Hyperlipidemia 04934025 E78.5 Reduced libido 3319551 R 68.82 [id number] Ta [address]ine [address] [facility] Internal [place] [address] [place] [address] [place] [address] 12/05/2023 09:30:52 12/05/2023 09:57:28 Overweight 358481840 E66.3 Reduced libido 7700354 R 68.82 [id number] [facility] Primary Care [facility] [address] [facility] [address] [address] [place] [address] 03/26/2024 13:56:41 03/26/2024 14:28:48 Vitamin D deficiency 18226159 E55.9 Hyperlipidemia 34303969 E78.5 [id number] Ta christine MD [facility] Primary Care [facility] [address] [facility] [address] [place] [address] 07/30/2024 15:37:13 07/30/2024 16:49:46 Screening - NAD 662644420 Z13.9 Get yearly flu shotGet Tdap if not doneCan do COVID 19 boosters RTC in 2 weeks, do labs, ER if worse, he did verbalize his understand ing of the above Hyperlipidemia 92106448 E78.5 On atorvastat in 10mg daily Vitamin D deficiency 347 08242 E55.9 Serum jay min B12 below reference range 626082575 R79.89 Attention deficit hyperactivity disorder 798085619 F90.9 Atomoxetin e 100mg dailySees Dr Louis Essential hypertension 75866446 I10 On lisinopril -HCTZ 20-25mg daily Gastroesop hageal reflux disease without esophagitis 759005375 K21.9 On pantoprazo le 40mg daily Moderate r ecurrent major depression 37619483 F33.1 On quetiapine 100mg [address] Barrios suicidal or homicidal Obesity 622980053 E66.9 Is on Wegovy, will d/c this as he states that this not helpingHe is eager to get on ZepboundNo hx of MEN2, MCT, thyroid or parathyroi d complaints , he is on medication s for depression Hydrate and take supplement s He has tolerated the Wegovy well and knows the side effects of the GLP-1 [id number] Ta christine [address] [facility] Primary Care [address] [place] [address] 07/31/2024 10:52:40 07/31/2024 11:18:49 [id number] Ta christine MD [facility] Primary [facility] [place] [address] [facility] [address] [place] [address] 11/19/2024 11:21:10 11/19/2024 12:37:46 Screening - NAD 486707552 Z13.9 Get yearly flu shotGet Tdap if not doneCan do COVID 19 boosters RTC in 1 month, do labs, ER if worse, he did verbalize his understand ing of the above Hyperlipidemia 30312893 E78.5 On atorvastat in 10mg daily Vitamin D deficiency 347 83988 E55.9 Serum jay min B12 below reference range 978424710 R79.89 Attention deficit hyperactivity disorder 262803331 F90.9 On buspirone 15mg tid Hao LariceOn sertraline 100mg Chiara Brito topiramate 50mg daily Chiara Gore on atomoxetin e 100mg dailySees Dr Louis Essential hypertension 40554984 I10 On lisinopril -HCTZ 20-25mg daily Gastroesop hageal reflux disease without esophagitis 878913624 K21.9 On pantoprazo le 40mg dailyIs to get this on 11/25/2024 at [facility] Moderate r ecurrent major depression 56232648 F33.1 On baclofen but not taking this as per his history 11/19/2024 On buspirone 15mg tid Hao LariceOn sertraline 100mg Chiara Brito topiramate 50mg daily Chiara Brito trazodone 50mg daily Not on quetiapine 100mg [address] Barrios suicidal or homicidalN ow to see psychiatry Obesity 130171010 E66.9 Is on Wegovy, will d/c this as he states that this not helpingHe is eager to get on ZepboundNo hx of MEN2, MCT, thyroid or parathyroi d complaints , he is on medication s for depression Hydrate and take supplement sIs on zepbound 5mg weekly He has tolerated the Wegovy well and knows the side effects of the GLP-1 Alcohol rehabilitation 76887568 Z71.41 [id number] [facility] Now has a sponsor and has a sponser with AA On buspirone 15mg tid Hao Hughes sertraline 100mg Chiara Brito topiramate 50mg daily Chiara Brito trazodone 50mg daily Health Concerns Section Related Observation LastModified by Organization Detai ls LastModified Time None Recorded Concern Status LastModified by Organization Details LastModified Time None Recorded Advance Directives Directive N: Payers Insurance Date Sequence Insurance Name Policy Number Policy Prince Covered Member ID Prince Member ID Guarantor Name 07/24/2024 [facility] Musa Patel Daquan SELF SELF Musa Patel Daquan 01/12/2025 1 [place] - OPEN ACCESS Musa Patel Daquan [id number] Musa Patel Daquan Notes Date Note Type Note Provider Name and Address Organization Details Recorded Time 4 text/html Musa presents today to follow up on his Wegovy. He states that he is in need of a refill and increase although he should still have at least 2 more weeks of medication and his medication was not picked up from the pharmacy that it was sent to. He also states that he has reduced his duloxetine and hydroxyzine and is no longer taking. He states that he feels better and has more energy. 09/26/2023diana presents today to establish care. He was unable to get in with his previous provider. 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 He is currently on Wegovy for weight loss. He states that he feels that his testosterone is low, he has decreased libido, decreased energy. He states that he would like this checked.01/30/2023hypertens ion no headache no dizzinesshyperlipidemia Try to follow low-fat dietGERD no nausea no vomitingpsychiatric disorder not otherwise specified no SI or HI he has seen psychiatry is on medicationInterested in [employer] agent Soco Murphy, [employer] [address], [facility] [address], [place], [address], [facility] [employer] 12/05/2023 09:55:04 4 text/html Musa presents today to discuss medication for hormone therapy. He has lost 20 pounds since September on the Wegovy. 4Rdiana presents today to follow up on his Wegovy. He states that he is in need of a refill and increase although he should still have at least 2 more weeks of medication and his medication was not picked up from the pharmacy that it was sent to. He also states that he has reduced his duloxetine and hydroxyzine and is no longer taking. He states that he feels better and has more energy. 4Rdiana presents today to establish care. He was unable to get in with his previous provider. 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 He is currently on Wegovy for weight loss. He states that he feels that his testosterone is low, he has decreased libido, decreased energy. He states that he would like this checked. Soco Murphy APRN [address], [facility] [address], [place], [address], [employer] 03/26/2024 17:48:45 5 text/html OV 07/30/2024:Here to establish care Present Hx:HLDADDHTNDepressionObesi ty Here to discuss above, is doing well, but is wanting now to switch to Zepbound as a weight loss option, he is very aware of the side effects of GLP-1 and has done well thus far Ta Castillo MD [address], [facility] [address], [place], [address], [employer] 08/01/2024 14:16:13 5 text/html OV 07/30/2024:Here to establish care Present Hx:HLDADDHTNDepressionObesi ty Here to discuss above, is doing well, but is wanting now to switch to Zepbound as a weight loss option, he is very aware of the side effects of GLP-1 and has done well thus far OV 11/19/2024: Here for his f/u apt, he is s/p d/c from alcohol rehab, now sober and doing wellHe would like a referral to psychiatry, and also refill on the trazodone and his zepbound, no new labs noted Ta Castillo MD [address] [facility] [address], [place], [address], [place] [facility] 11/19/2024 13:02:40
[2025-01-14 13:25] VITALS: BP 110/75; PULSE 75; RESP 18; TEMP 36.7; O2SAT 94
[2025-01-14] MEDS: LACTATED RINGERS 1,000 ML 150 ML IV CONT (13:26)
--- NOTE | 2025-01-14 13:28 | WPDANESEPPF ---
Anes - Initial Pre Proc Eval Procedure: Operation Date: 01/14/25 14:30 Proposed Procedures p Esophagogastroduodenoscopy - Reji Cazares MD Date/Time: 01/14/25 13:28 Surgeon: Reji Cazares MD Pre Op Diagnosis: Gastro-esophageal reflux disease without esophagit Patient Data Age: 44 Gender: M Height: 1.8 m Weight: 98.4 kg Last Vital Signs Temp 36.7 C 01/14/25 13:25 Pulse 75 01/14/25 13:25 Resp 18 01/14/25 13:25 BP 110/75 01/14/25 13:25 Pulse Ox 94 01/14/25 13:25 O2 Del Method Room Air 01/14/25 13:25 Allergies Allergy/AdvReac Type Severity Reaction Status Date / Time Sulfa (Sulfonamide Allergy Unknown Hives Verified 01/05/25 11:07 Antibiotics) Home Medications ?Medication ?Instructions ?Recorded ?Confirmed ?Type atorvastatin 10 mg tablet 10 mg PO DAILY 03/15/23 01/14/25 History lisinopril 20 1 tablet PO DAILY 03/15/23 01/14/25 History mg-hydrochlorothiazide 25 mg tablet pantoprazole 40 mg tablet,delayed 40 mg PO QAM 03/15/23 01/14/25 History release buspirone 15 mg tablet 15 mg PO TID 01/05/25 01/14/25 History sertraline 100 mg tablet 100 mg PO DAILY 01/05/25 01/14/25 History tirzepatide (weight loss) 5 mg/0.5 5 mg subcut WEEKLY 01/05/25 01/05/25 History mL subcutaneous pen injector (Zepbound) topiramate 50 mg tablet 50 mg PO DAILY 01/05/25 01/14/25 History trazodone 50 mg tablet 10 mg PO HS PRN sleep 01/05/25 01/05/25 History Patient hx anesthesia problems: none Family hx anesthesia problems: none Results Review: All pre-operative results and documents have been reviewed as part of the pre-operative evaluation. [facility] Past Medical History Medical History Anxiety Depression Hyperlipemia Hypertension Surgical History Surgical History History of arthroscopy of left knee Family History Family History Mother Hypertension Father Hypertension Social History Social History Smoking status: Never smoker Alcohol intake: former Alcohol use details: Alcohol Abuse 25 years, Sober 2021 Substance use: former Substance use type: marijuana Do You Feel Safe in your Home?: Yes Lack of Transportation: No Lack of Food: Never True Current Housing: I Have Housing Concerned About Future Housing: No Difficulty Paying Gas/Electric Bills: No Difficulty Paying for Meds: No Currently Unemployed: No Education: Bachelor's Degree Difficulty w/ Childcare or Family Care: No Living arrangements: alone Occupation/Education: occupation Additional occupation/education comments: [employer] care concerns: No Anes - Eval Final PreProcedure Day of Procedure 01/14/25 13:28 Patient weight: obese Heart: regular rate and rhythm Lungs: clear to auscultation Airway: Mallampati scale class II Neurological: alert and oriented Last oral intake: >/= 8 hours ASA classification: III Emergent: no Anesthetic plan: proceed Anesthesia type and monitoring: general GIVS and standard monitoring Results Review: All pre-operative results and documents have been reviewed as part of the pre-operative evaluation. Informed Consent: The patient's anesthetic plan and its attendant risks and benefits were discussed with the patient/family/POA. Questions were solicited and answers provided to the satisfaction of the patient/family/POA.
--- NOTE | 2025-01-14 14:10 | PM.HPGS ---
History of Present Illness History of Present Illness Consent: Risks, benefits, and alternatives have been discussed and questions answered. Patient agrees to proceed with procedure. Chief complaint: Gastro-esophageal reflux disease without esophagit Narrative: Musa Butt is a 44 year old male with long standing gerd on ppi for years but never had egd, he is doing ok Review of Systems Review of Systems: All systems reviewed & are unremarkable except as noted in HPI and below PMFSH Past Medical History Medical History (Updated 01/14/25 @ 14:10 by Reji Cazares MD) GERD (gastroesophageal reflux disease) Anxiety Depression Hyperlipemia Hypertension Surgical History Surgical History History of arthroscopy of left knee Family History Family History Mother Hypertension Father Hypertension Social History Social History Smoking status: Never smoker Alcohol intake: former Alcohol use details: Alcohol Abuse 25 years, Sober 2021 Substance use: former Substance use type: marijuana Do You Feel Safe in your Home?: Yes Lack of Transportation: No Lack of Food: Never True Current Housing: I Have Housing Concerned About Future Housing: No Difficulty Paying Gas/Electric Bills: No Difficulty Paying for Meds: No Currently Unemployed: No Education: Bachelor's Degree Difficulty w/ Childcare or Family Care: No Living arrangements: alone Occupation/Education: occupation Additional occupation/education comments: [employer] concerns: No Meds Home Medications and Allergies Home Medications ?Medication ?Instructions ?Recorded ?Confirmed ?Type atorvastatin 10 mg tablet 10 mg PO DAILY 03/15/23 01/14/25 History lisinopril 20 1 tablet PO DAILY 03/15/23 01/14/25 History mg-hydrochlorothiazide 25 mg tablet pantoprazole 40 mg tablet,delayed 40 mg PO QAM 03/15/23 01/14/25 History release buspirone 15 mg tablet 15 mg PO TID 01/05/25 01/14/25 History sertraline 100 mg tablet 100 mg PO DAILY 01/05/25 01/14/25 History tirzepatide (weight loss) 5 mg/0.5 5 mg subcut WEEKLY 01/05/25 01/14/25 History mL subcutaneous pen injector (Zepbound) topiramate 50 mg tablet 50 mg PO DAILY 01/05/25 01/14/25 History trazodone 50 mg tablet 10 mg PO HS PRN sleep 01/05/25 01/05/25 History Allergies Allergy/AdvReac Type Severity Reaction Status Date / Time Sulfa (Sulfonamide Allergy Unknown Hives Verified 01/05/25 11:07 Antibiotics) Vital Signs Vital Signs - 24 hr 01/14/25 13:25 Temperature 98.0 F Pulse Rate 75 Respiratory Rate 18 Blood Pressure 110/75 Pulse Oximetry 94 Oxygen Delivery Room Air Exam Const: General: comfortable and no acute distress HENMT: Face/Nose/Sinus: Normal nares present Eyes: General: appearance normal, both eyes and all related structures Neck: Neck: no JVD Resp: Auscultation: clear to auscultation bilaterally Cardio: Rate: regular rate Rhythm: regular rhythm GI: Inspection: non-distended GI Palp: Yes Soft to palpation Skin: General skin exam: normal color Neuro: General: gait normal Speech: normal speech Extrem: General: normal to inspection Psych: Mental Status: mental status grossly normal Assessment and Plan Assessment and plan (1) GERD (gastroesophageal reflux disease): Code(s): K21.9 - Gastro-esophageal reflux disease without esophagitis Status: Acute Assessment and Plan: egd with bx on ppi
--- NOTE | 2025-01-14 14:14 | S_PTH ---
PATIENT: Musa Butt LOC: [facility]#:[id number] AGE/SX: 44/M ROOM: RE01/14/[address]: Reji Cazares MD : 1980 BED: DIS: 01/14/2025 SPEC #: [id number] RECD: 01/15/25 08:39 STATUS: KI REScott #: [id number] DARIUS: 01/14/25 14:[address]: Reji Cazares DEPT: [facility] Surgical RECD BY: Catherine Valverde MLT, ([facility]) ENTERED: 01/15/25 08:39 SP TYPE: Surgical OTHR DR: Ta CastilloMD Tissues: A - Gastric Biopsy Procedures: Hematoxylin and Eosin Stain Gross and Microscopic Level 4
[2025-01-14 14:23] VITALS: BP 103/68; PULSE 69; RESP 23; O2SAT 96
[2025-01-14 14:33] VITALS: BP 101/70; PULSE 60; RESP 20; O2SAT 96
[2025-01-14 14:43] VITALS: BP 112/76; PULSE 64; RESP 18; O2SAT 98
== END 2025-01-14 14:48 | disposition home or self-care (01) ==
PROVIDERS: PCP Internal Medicine; Referring Provider Internal Medicine; Visit Provider Internal Medicine Gastroenterology
PROC: 0DJ08ZZ Inspection of Upper Intestinal Tract, Via Natural or Artificial Opening Endoscopic (ICD-10-PCS; CPT 43239; principal; 2025-01-14 14:30)
DX: K21.9 Gastro-esophageal reflux disease without esophagitis (principal); E78.5 Hyperlipidemia, unspecified; I10 Essential (primary) hypertension; F41.9 Anxiety disorder, unspecified; F32.A Depression, unspecified; F12.90 Cannabis use, unspecified, uncomplicated; E66.9 Obesity, unspecified; Z68.30 Body mass index [BMI] 30.0-30.9, adult; Z79.85 Long-term (current) use of injectable non-insulin antidiabetic drugs; Z98.890 Other specified postprocedural states
CPT/HCPCS: 43239; 88305; J2003; J2704; J7120